=== PATIENT | male | born 1950 | race Caucasian/White ===

== ENCOUNTER 2017-04-08 16:19 | Inpatient (IN) | payer MEDICARE, OTHER ==
--- NOTE | ~2017-04-08 | CN ---
Consultation Report [facility] [address] [place]. [address] NAME: EL BLAND : 48 STATUS : ADM IN PAT#: [id number] AGE: 66 ADM/REG DATE : 04/09/17 MR#: [id number] REPORT SERV DATE: 04/14/17 DICTATED BY: DATE: REPORT STATUS : Draft TRANSCRIBED BY: MODL DATE: 04/11/17 CONSULT DATE OF CONSULTATION: 04/11/2017 REASON FOR CONSULTATION: Acute kidney injury, hypercalcemia, multiple myeloma. HISTORY OF PRESENT ILLNESS: Mr. Bland is a 66-year-old, white male, who has a history of chronic back pain. However, unfortunately, fell and then developed severe back pain over and above his usual and was found to have compression fractures in the rib and vertebral spine, hypercalcemia in the emergency department and very concerning for multiple myeloma, therefore he was admitted. On presentation for the hypercalcemia, he was given Aredia and IV fluids. Oncology saw him and he had a bone marrow biopsy and findings were consistent for the multiple myeloma, and we have been asked to see the patient for possible hyperviscosity. His creatinine has also risen from 2.1 to 2.67. Calcium remains elevated at 13 and his total protein is elevated at 11.9. He has became altered and to be transferred to the [facility] and most likely will require intubation later and transfer to the intensive care unit. PAST MEDICAL HISTORY: No history of kidney disease. Positive for hypertension, chronic back pain, reflux, depression, and BPH. He has had back and neck fusion, appendectomy, and tonsillectomy and surgery to his left shoulder and left hip. FAMILY MEDICAL HISTORY: Negative for any kidney disease. SOCIAL HISTORY: He is . No tobacco, alcohol, or illicit drug use. ALLERGIES: NO KNOWN DRUG ALLERGIES. MEDICATIONS: At home simvastatin, hydrocodone, gabapentin, HCTZ, Voltaren, and Flomax. REVIEW OF SYSTEMS: Unable to obtain given the patient's altered mental status. PHYSICAL EXAMINATION: VITAL SIGNS: Temperature 98.3, blood pressure 179/84, pulse 90, respiratory rate 28, O2 saturation is 99% on 5 L. GENERAL: This is an ill-appearing white male. He opens his eyes but did not respond verbally. He is quite tachypneic. He has BiPAP on. LUNGS: Respirations are labored. His breath sounds, he has crackles and rhonchi noted throughout. HEART: His heart rate is regular. I did not hear any murmur, rub, or gallop, but he has significant rhonchi. ABDOMEN: Soft and nontender and did not examine the back as he is on BiPAP. EXTREMITIES: No significant edema. Love catheter to bedside drainage with pale yellow Consultation Report [place] [id number] [facility] [address] [address] NAME: EL BLAND : 48 STATUS : ADM IN PAT#: [id number] AGE: 66 ADM/REG DATE : 04/09/17 MR#: [id number] REPORT SERV DATE: 04/14/17 DICTATED BY: DATE: REPORT STATUS : Draft TRANSCRIBED BY: LUIS DATE: 04/11/17 urine. NEUROLOGIC: Could not be performed. I did not see any unusual rashes or skin lesions. PERTINENT LABS AND X-RAYS: He had an ABG earlier with pH 7.5, pCO2 of 28, pO2 of 61, bicarb of 23, sodium 141, potassium 3.5, chloride 107, CO2 of 26, BUN of 30, creatinine of 2.6, calcium of 13.1, phosphorus 1.4, magnesium of 1.2. WBC 7.7, H and H 8 and 24, platelets 105,000. IMPRESSION: 1. Acute kidney injury. 2. Multiple myeloma new diagnosis. 3. Compression fractures. 4. Hypercalcemia. 5. Hypomagnesemia. 6. Hypophosphatemia. 7. Hypertension. 8. Chronic back pain. PLAN: Acute kidney injury in the setting of multiple myeloma, increased calcium and total protein of over 11. 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 The patient is already developing pulmonary edema, so volume cannot be continued as it is. We will plan to get a Vas-Cath placed, and vascular surgeon has already been called, and plan for plasmapheresis plus or minus dialysis. I have discussed plan with and daughters and granddaughters who are at bedside and they are agreeable with plan of care. Further orders and recommendations pending clinical course. NEERAJ/LUIS ILSA Zambrano / [id number] CC: Supa Navarro DO
--- NOTE | ~2017-04-08 | OP ---
Record Of Operation [facility] [address] [place]. [address] NAME: EL PETERS : 46 STATUS : ADM IN [facility]#: [id number] AGE: 66 ADM/REG DATE : 04/09/17 MR#: [id number] REPORT SERV DATE: 04/11/17 DICTATED BY: PER FERNANDEZ DATE: 04/11/17 REPORT STATUS : Draft TRANSCRIBED BY: MODL DATE: 04/11/17 DATE OF PROCEDURE: 04/11/2017 PREOPERATIVE DIAGNOSIS: Acute renal failure. POSTOPERATIVE DIAGNOSIS: Acute renal failure. PROCEDURE: Right IJ Vas-Cath. SURGEON: Per Fernandez M.D. ANESTHESIA: Propofol. COMPLICATIONS: None. BLOOD LOSS: Minimal. HISTORY: The patient is a 11-ukdn-udae in need of urgent dialysis. The plan is for right IJ Vas-Cath. DESCRIPTION OF PROCEDURE: The patient was seen in the IMCU and the right neck prepped and draped in a sterile fashion. Ultrasound confirmed a patent jugular vein. It was accessed under ultrasound guidance with an 18-gauge needle. Wire passed easily. The needle was removed. The access site was dilated serially and then the 15 cm 14.5-[place] Vas-Cath was passed over the wire easily. Both ports flushed easily. The Vas-Cath was secured to the skin with 2-0 silk suture. Sterile dressing applied. The patient tolerated the procedure well. Chest x-ray is pending. ANASTASIA/LUIS Per Fernandez M.D. / [id number] CC: DO Panda Chavez M.D.
--- NOTE | ~2017-04-08 | EEG ---
Electroencephalogram [facility] [address] [place]. [address] NAME: EL PETERS : 48 STATUS : ADM IN PAT#: [id number] AGE: 66 ADM/REG DATE : 04/09/17 MR#: [id number] REPORT SERV DATE: 04/14/17 DICTATED BY: DATE: REPORT STATUS : Draft TRANSCRIBED BY: MODL DATE: 04/14/17 CLINICAL INDICATIONS: Encephalopathy. DISCUSSION: This EEG was performed using 10/20 electrode placement system. During the EEG study, symmetric background activity was noted, predominant occipital rhythm of roughly 4 hertz. The patient was noted to have generalized slowing during the EEG study, with intermittent low-amplitude flat brain activity concerned for possible burst suppression type of patterns. Photic stimulation was performed. No clear driving response was seen. Episodic frontal beta rhythm was noted during the EEG evaluation. Hyperventilation was not performed secondary to the patient's intubation status. No electrographic seizure was otherwise visualized during the EEG evaluation. No clear focal abnormality was noted. INTERPRETATION: This EEG study obtained entirely during comatose state may be considered abnormal secondary to presence of generalized slowing as well as the presence of intermittent low amplitude flat background concern for possible burst suppression type of patterns, either secondary to sedation versus underlying metabolic encephalopathy or cerebral injury. No electrographic seizure was otherwise noted during today's EEG evaluation. Prior to EEG evaluation, the patient was on propofol sedation as well as Precedex was turned off prior to EEG study. Clinical correlation is otherwise recommended. [facility]/MODL Oliver García MD / [id number] CC: Supa Navarro DO
--- NOTE | ~2017-04-08 | OP ---
Record Of Operation [facility] [address] [place]. [address] NAME: EL PETERS : 48 STATUS : ADM IN PAT#: [id number] AGE: 66 ADM/REG DATE : 04/09/17 MR#: [id number] REPORT SERV DATE: 04/22/17 DICTATED BY: JANICE FERNANDEZ DATE: 04/22/17 REPORT STATUS : Draft TRANSCRIBED BY: MODL DATE: 04/22/17 DATE OF PROCEDURE: 04/22/2017 PREOPERATIVE DIAGNOSIS: End-stage renal disease. POSTOPERATIVE DIAGNOSIS: End-stage renal disease. PROCEDURE: Right IJ PermCath. ANESTHESIA: Local with sedation. COMPLICATIONS: None. BLOOD LOSS: Minimal. HISTORY: The patient is a 66-year-old male in need of dialysis access. It was thought he would benefit from a right IJ PermCath. This was discussed with the patient at length. He expressed understanding and desired to proceed. DESCRIPTION OF PROCEDURE: The patient was taken to the operating room and placed in the supine position. He was given IV sedation without complication. His neck and chest were prepped and draped in a sterile fashion. Ultrasound was used to identify the internal jugular vein on the right. Patency was confirmed with compression. A copy of this image was placed on the chart. 1% lidocaine was infiltrated in the skin and subcutaneous tissues overlying the internal jugular vein and onto the chest wall. Under ultrasound guidance, an 18-gauge needle was placed into the internal jugular vein. Wire was passed into the SVC and IVC which was confirmed with fluoroscopy. The needle was removed. A site for PermCath exit was chosen on the chest wall and an 11 blade was used to create an exit site. The access site was enlarged with the 11 blade as well. The 24 curved PermCath was tunneled from the exit site to the access site. Under fluoroscopic guidance, the peel-away sheath and dilator were passed over the wire into the SVC. The wire and dilator were removed. The catheter was placed through the peel-away sheath and the sheath peeled away without difficulty. The catheter was without kinking. The tip was in the right atrium. Both ports aspirated and flushed without difficulty. They were locked with full strength heparin. The access site and exit site were closed with 4-0 Monocryl suture. The PermCath was secured to the chest wall with Ethilon suture. Sterile dressing was applied. The patient tolerated the procedure well. He will be taken to the recovery room, when he is able to, for continued care. ANASTASIA/LUIS Janice Fernandez M.D. Record Of Operation [address] [address] NAME: EL PETERS : 48 STATUS : ADM IN [facility]#: [id number] AGE: 66 ADM/REG DATE : 04/09/17 MR#: [id number] REPORT SERV DATE: 04/22/17 DICTATED BY: JANICE FERNANDEZ DATE: 04/22/17 REPORT STATUS : Draft TRANSCRIBED BY: LUIS DATE: 04/22/17 / [id number] CC: MD Panda Staley M.D.
--- NOTE | ~2017-04-08 | CN ---
Consultation Report [facility] [address] [place]. [address] NAME: EL PETERS : 48 STATUS : ADM IN PAT#: [id number] AGE: 66 ADM/REG DATE : 04/09/17 MR#: [id number] REPORT SERV DATE: 04/11/17 DICTATED BY: DATE: REPORT STATUS : Draft TRANSCRIBED BY: MODL DATE: 04/11/17 NEUROLOGY CONSULTATION DATE OF CONSULTATION: 04/11/2017 REASON FOR CONSULT: Decreased mental arousal as well as confusion. HISTORY OF PRESENT ILLNESS: This is a 66-year-old male presented to [facility] on 04/09/2017 after a fall. The patient was noted to have back pain as well as difficulty breathing. The patient in emergency room was noted to have a rib fracture as well as a thoracic vertebral compression fracture. The patient was subsequently also noted to have multiple lytic initiated and myeloma was subsequently diagnosed. The patient was placed on therapy and develop possible viscosity syndrome. The patient noted to have a constellation of hypertension as well as acute renal failure with hypercalcemia. The patient in addition was also noted to have worsening respiratory status, was placed on BiPAP despite resuscitation as well as vitamin B12 supplementation for vitamin B12 deficiency. Unfortunately, the patient was noted to have worsening mental status. In addition, the patient's chest x-ray on 04/11/2017 also was noted to have development of volume overload. Prior to the hospitalization, no reports of recent illness, fever, chills, nausea, vomiting, was otherwise reported. The patient baseline was not noted to have any pre-existing kidney disease. The patient does have a history of hypertension, gastroesophageal reflux disease, peptic ulcer disease. The patient has had history of previous GI bleed required transfusion as well as a prior history of depression and chronic back pain. SOCIAL HISTORY: Denies tobacco, alcohol, or recreational drug usage per medical record. REVIEW OF SYSTEMS: The patient's review of system being unable to be obtained secondary to the patient's current mental status. FAMILY HISTORY: The patient's family history is also currently difficult to obtain secondary to the patient's mental status. MEDICATIONS: The patient's current medications consist of DuoNeb, Flomax, folic acid, , potassium, Decadron, lactulose, Lopressor, Neurontin, Zocor, Zosyn. The patient was previously given one dose of vitamin B12 secondary to vitamin B12 deficiency. PHYSICAL EXAMINATION: VITAL SIGNS: At the time of evaluation, the patient was noted to have overnight vital signs with T-max of 99.8, heart rate of 90 to 111, respirations of 16 to 28, and blood pressure of 148 to 200 over 72 to 87. GENERAL: The patient is well developed, well nourished, was noted to have mild distress secondary to respiratory issues. Consultation Report [place] [id number] [place]. [address] NAME: EL PETERS : 48 STATUS : ADM IN PAT#: [id number] AGE: 66 ADM/REG DATE : 04/09/17 MR#: [id number] REPORT SERV DATE: 04/11/17 DICTATED BY: DATE: REPORT STATUS : Draft TRANSCRIBED BY: LUIS DATE: 04/11/17 CARDIOVASCULAR: Tachycardic. No carotid bruits were otherwise auscultated. PULMONARY: Decreased breath sound was noted in bilateral lung hilario. NEUROLOGIC: The patient was noted to have neurological examination. The patient was noted to be opening his eyes with spontaneous movement of all extremities, although decreased movement in the left upper extremity was noted at the time of evaluation. However, the patient is not following commands and not answering questions making any meaningful verbalization horizontal eye movement was otherwise noted at the time of evaluation. The patient does have pupil reactive to light bilaterally. The patient noted to have blink to threat response. Facial expression appeared to be symmetrical. The patient noted to have grimace to noxious stimulation. 1+ reflexes throughout. Upgoing toe on bilateral plantar reflexes. Gait and cerebellar examination was unable to be obtained secondary to the patient's current mental status. LABORATORY STUDIES: Demonstrated white blood cell count of 7.7, hemoglobin of 8.3, hematocrit of 24.4, and platelet count of 105. Chemistry panel: Sodium 141, potassium 3.5, chloride 107, bicarb 26, BUN of 30, creatinine of 2.67, glucose of 157. Calcium of 13.1, magnesium of 1.2. The patient was noted to have serum ammonia of 42, folate of 4.2, and vitamin B12 of 149. Serum ABG demonstrated pH of 7.49, pCO2 of 32, PO2 of 91, bicarb of 24, O2 saturation of 97.2. CT scan of the brain was reviewed. No clear acute abnormality was seen. IMPRESSION: Encephalopathy concern for hyperviscosity syndrome. The patient was noted to be hyperventilating. The patient noted to have respiratory distress on BiPAP. Also noted with a hyperammonemia as well as multiple vitamin deficiency. We will obtain Critical Care Consultation for possible intubation. Meanwhile, we will recommend proceeding with the hemodialysis as well as plasmapheresis. We will supplement the patient with vitamin as well as the thiamine and p.o. folate once the patient was intubated. RECOMMENDATION: 1. Intubation. 2. Vitamin B12 of 1000 mcg IM daily. 3. Thiamine 100 mg IV daily. 4. Plasmapheresis and hemodialysis. [facility]/MODL Oliver García MD / [id number] CC: Supa Navarro DO
--- NOTE | ~2017-04-08 | HP ---
History And Physical [place] [id number] [facility] [place]. [address] NAME: EL BLAND : 48 STATUS : ADM IN PAT#: [id number] AGE: 66 ADM/REG DATE : 04/09/17 MR#: [id number] REPORT SERV DATE: 04/09/17 DICTATED BY: OBINNA KWONG DATE: 04/09/17 REPORT STATUS : Draft TRANSCRIBED BY: MODL DATE: 04/09/17 DATE OF ADMISSION: 04/08/2017 CHIEF COMPLAINT: Fall at home and severe back pain and bilateral chest pain. HISTORY OF PRESENT ILLNESS: This is a 66-year-old male with a history of hypertension, gastroesophageal reflux disease, who presents to the emergency room at [facility] with the above-mentioned complaint. History is obtained from the patient, his , who is at bedside, and reviewing data available on the [employer] system. Mrs. Bland, the patient's , reports that he has been having severe back pain which has been ongoing since January of 2017. They had seen his primary care physician and also several times at [facility] in [place], where he was given medication and discharged home. Today, she was out of home, and he apparently slipped in his bathroom and fell while taking a shower. He was, however, able to get up and dress himself and go lie down. He told her after she came back and she found that he was in considerable pain and had difficulty with chest pain with any breathing. So, she finally decided to bring him to the emergency room here to be evaluated. In the emergency room, initial workup revealed vertebral compression fractures as well as rib fractures subsequent to the fall but also showed severe hypercalcemia with osteolytic skeletal lesions concerning for metastatic disease and multiple myeloma. Hospitalist Service is asked to admit him for further evaluation and treatment. At the time of my evaluation, he denied any chest pain like having a heart attack. He denied any palpitations or orthopnea. He denied any cough, hemoptysis, night sweats, or weight loss. He has not had any loss of consciousness, although he did have a fall today. No history of recent fevers, chills, nausea, vomiting, diarrhea, hematemesis, hematochezia, or hematuria. No other history of recent travel or exposures other than those mentioned above. PAST MEDICAL HISTORY: Significant for history of hypertension, gastroesophageal reflux disease, peptic ulcer disease, depression, and chronic back pain. SOCIAL HISTORY: He does not smoke, drink, or use recreational drugs. FAMILY HISTORY: Noncontributory. MEDICATIONS: At home were reviewed by me in the chart today and reordered by me. REVIEW OF SYSTEMS: As in history of present illness. All other systems were reviewed in detail and quite unremarkable. PHYSICAL EXAMINATION: History And Physical [address] [address] NAME: EL BLAND : 48 STATUS : ADM IN PAT#: [id number] AGE: 66 ADM/REG DATE : 04/09/17 MR#: [id number] REPORT SERV DATE: 04/09/17 DICTATED BY: OBINNA KWONG DATE: 04/09/17 REPORT STATUS : Draft TRANSCRIBED BY: LUIS DATE: 04/09/17 GENERAL: This is a pleasant 66-year-old, not in any acute distress. HEENT: His head is atraumatic, normocephalic. He is alert, awake, oriented to time, place, and person. His pupils are equal, reacting to light and accommodating. External ocular muscles are intact. Membranes are moist and pink. Sclerae are nonicteric. NECK: Supple with no jugular venous distention, lymphadenopathy, or thyromegaly. LUNGS: Clear to auscultation with no wheezes, rubs, or crackles. HEART: Heart sounds are regular with no murmurs, rubs, or gallops. ABDOMEN: Soft, nontender. Bowel sounds are present. EXTREMITIES: Showed no cyanosis, clubbing, or edema. NEUROLOGIC: Grossly intact. No focal sensory or motor deficits. Higher functions appeared intact. Gait was not examined. VITAL SIGNS: His vital signs today showed a temperature of 97.4, pulse 68, respirations 16 a minute, blood pressure upon arrival is 230/79, oxygen saturations are 98% breathing 2 L of oxygen via nasal cannula. LABORATORY DATA: Reviewed on the [employer] system showed a sodium of 139, potassium 3.8, chloride 104, CO2 of 32, BUN was 19 with a creatinine of 2.14. We do not have any prior values. His blood glucose was 101 and calcium was 14.9 with ionized calcium of 7.8. His albumin was 2.6 today. Alkaline phosphatase was 85. ALT 56, AST 92, and lipase was 91. His lactate was 1.1. CBC showed a white blood cell count of 5300, hemoglobin was 10, hematocrit 30, and platelet count was 136. His prothrombin time was 17.7 with an INR of 1.5. Films of the chest x-ray, CT of the abdomen, and other skeletal films done today were reviewed by me on the PACS today and interpreted by me. Official radiology report was also reviewed on the CT of the abdomen. According to radiology in the CT of the abdomen there is compression fractures at T10, T12, and L1. There is also diffuse osteolytic metastatic appearing lesions seen concerning for multiple myeloma. Please see report for details. IMPRESSION: 1. Fall at home. 2. Vertebral compression fractures and rib fractures. 3. Hypercalcemia with osteolytic skeletal lesions concerning for multiple myeloma. 4. Acute pain after the fall and fractures. 5. Uncontrolled hypertension. 6. Gastroesophageal reflux disease. 7. Peptic ulcer disease. 8. Depression. 9. Hypomagnesemia. PLAN: We will admit Mr. Bland to the Hospitalist Service to the oncology floor. We will establish pain control with intravenous Dilaudid on an as-needed basis. He has no respiratory compromise and other than the chest pain due to rib fractures, he appears to be stable. We will start him on IV fluids with normal saline at 200 mL an hour, follow output, and go ahead and repeat his chemistry including calcium in the morning. We will also consult Oncology Service to evaluate him for multiple myeloma in the morning. He does have mild confusion but not very severe at this point due to his hypercalcemia. Meanwhile, we will go ahead and replace his magnesium as well. I have discussed the above plans with the patient and his . Questions were answered, and they are agreeable to the above History And Physical [address] [address] NAME: EL BLAND : 48 STATUS : ADM IN [facility]#: [id number] AGE: 66 ADM/REG DATE : 04/09/17 MR#: [id number] REPORT SERV DATE: 04/09/17 DICTATED BY: OBINNA KWONG DATE: 04/09/17 REPORT STATUS : Draft TRANSCRIBED BY: LUIS DATE: 04/09/17 recommendations. Hospitalist Service will be following him during his stay here. MR/MODL Obinna Kwong M.D. / [id number] CC: DO Panda Chavez M.D.
--- NOTE | ~2017-04-08 | DS ---
Discharge Summary [address] [facility] [place] [address] NAME: EL PETERS : 46 STATUS : DIS IN PAT#: [id number] AGE: 66 ADM/REG DATE : 04/09/17 MR#: [id number] REPORT SERV DATE: 04/30/17 DICTATED BY: CHRIS FORD DATE: 04/29/17 REPORT STATUS : Draft TRANSCRIBED BY: MODL DATE: 04/29/17 ADMISSION DATE: 04/09/2017 DISCHARGE DATE: 04/29/2017 DISCHARGE DIAGNOSES: 1. Multiple myeloma with hyperviscosity syndrome, status post Velcade and dexamethasone. 2. Acute hypoxic respiratory failure, requiring intubation and extubation, now resolved. 3. Acute kidney injury on hemodialysis secondary to septic shock and multiple myeloma. 4. Dysphagia, improving. 5. Atrial fibrillation with rapid ventricular response, now controlled. 6. Encephalopathy secondary to hyperviscosity syndrome. IMAGIN. CT brain, 04/10/2017, impression: No acute infarct or hemorrhage. 2. Kyphoplasty, 04/10/2017, impression: Technically successful biopsy and kyphoplasty of the T8 vertebra. 3. KUB, 04/11/2017, impression: NG-OG tube in place. Nonobstructive bowel gas pattern. 4. Chest x-ray, 04/11/2017, impression: Developing volume overload or congestive heart failure, compared to 04/08/2017. 5. Chest x-ray, 04/12/2017, impression: Bilateral pulmonary infiltrates with small pleural effusion unchanged. 6. Chest x-ray, 04/13/2017, increased volume overload, congestive heart failure pattern. 7. Chest x-ray, 04/14/2017, impression: Placement of right upper extremity PICC line with tip over the SVC. Continued dense retrocardiac opacity coming out on the left base consistent with pneumonia or atelectasis. 8. Chest x-ray, 04/15/2017, impression: Tubes and lines positioned as reported above. Left basilar atelectasis/infiltrate with possible pleural fluid. 9. Chest x-ray, 04/16/2017, impression: Status post extubation. Left greater than right bibasilar atelectasis and small effusion. 10.Chest x-ray, 04/17/2017, left basilar atelectasis and pleural fluid. 11.Chest x-ray, 04/18/2017, impression: Stable support lines and tubes. 12.Chest x-ray, 04/19/2017, impression: Bibasilar atelectasis and small left effusion, mildly improved from previous study. 13.CT of lumbar spine, 04/20/2017, impression: Stable compression fractures of the T12 superior endplate with minimal loss of height at this level, anterior wedge compression deformity of the L1 superior endplate was approximately 50% loss of height at L1. Stable posterior fusion hardware extending from L2 through S1 and disk spaces from L2 through L3 through L4 and 5, interbody fusion device at L5-S1. There is also anterior fusion hardware at L5-S1. There has been previous posterior decompression at L2 and L4. Mild bilateral neural foraminal narrowing at L1-2 and described. No high-grade spinal canal narrowing appreciated within the lumbar spine. 14.Chest x-ray, 04/21/2017, impression: Interval removal of the right internal jugular catheter. Otherwise, support lines are stable. No pneumothorax thorax. 15.Chest x-ray, 04/23/2017, impression: New tunneled right-sided hemodialysis catheter. No postprocedure pneumothorax seen. 16.Echocardiogram, 04/16/2017, technically difficult study. Normal left ventricular Discharge Summary [address] [address] NAME: EL PETERS : 48 STATUS : DIS IN PAT#: [id number] AGE: 66 ADM/REG DATE : 04/09/17 MR#: [id number] REPORT SERV DATE: 04/30/17 DICTATED BY: CHRIS FORD DATE: 04/29/17 REPORT STATUS : Draft TRANSCRIBED BY: MOD DATE: 04/29/17 systolic function with estimated ejection fraction of 55% to 60%, normal right ventricular chamber size and systolic function. Cannot rule out significant valvular disease due to poor acoustic windows. 17.Right IJ Vas-Cath placed on 04/11/[address] Per Fernandez. COURSE IN THE HOSPITAL STAY: Please refer to history and physical dictated upon admission as well as interim notes and consultation notes. This patient has newly diagnosed multiple myeloma with hyperviscosity syndrome. The patient was admitted on 04/09/2017, is now being discharged on 04/29/2017 per the patient's request, the patient is being discharged to [facility]. The patient has declined further treatment. He has requested no further dialysis or chemotherapy. He has discussed this in great length with Dr. Deny Obrien. The patient has met with [facility] and has decided that this would be the best direction of care at this time. DISCHARGE MEDICATIONS: Per [facility]. This discharge took less than 30 minutes. DICTATED BY: Chris Ford NP [facility]/MODL Chris Ford NP / [id number] CC: Aaliyah Chan M.D.
--- NOTE | ~2017-04-08 | IDS ---
Interim Discharge Summary [facility] [address] [place]. [address] NAME: EL PETERS : 48 STATUS : ADM IN PAT#: [id number] AGE: 66 ADM/REG DATE : 04/09/17 MR#: [id number] REPORT SERV DATE: 04/20/17 DICTATED BY: NOEMÍ JULES IV DATE: 04/20/17 REPORT STATUS : Draft TRANSCRIBED BY: LUIS DATE: 04/20/17 ADMISSION DATE: 04/09/2017 DISCHARGE DATE: Date of the transfer to the intensive care unit is 04/11/2017. Date of transfer to the floor is 04/20/2017. ADMITTING DIAGNOSES: 1. Acute hypoxemic respiratory failure, requiring intubation, extubated on 04/15/2017. 2. Multiple myeloma with hyperviscosity syndrome, improved. 3. Septic shock with no clear organism localized, who remains on antibiotic therapy. 4. Marked encephalopathy, felt to be secondary to the hyperviscosity, resolved. 5. Atrial fibrillation with rapid ventricular response, who remains on oral amiodarone. 6. Acute kidney injury status post dialysis with Nephrology following to see if a continued dialysis is needed. 7. Dysphagia. Currently, receiving tube feeds with formal swallow evaluation pending on Friday. 8. B12 deficiency for which he has received the low dose of B12 IM and will begin receiving weekly doses. 9. Hypertension, currently off his blood pressure medications. 10.Reflux disease. CONSULTANTS: 1. Neurology, who continued to follow the patient. 2. Nephrology, who continued to follow the patient. 3. [facility], who continued to follow the patient. PROCEDURES: 1. The patient underwent Vas-Cath placement on the with plasmapheresis from the through the with hemodialysis through the , now with a Vas-Cath removed. 2. Echocardiogram on the 04/16/2017 demonstrating left ventricular ejection fraction of 55% to 60% with no clear valvular disease though suboptimal study. 3. PICC line placement on the 04/13/2017. 4. EEG on the 04/14/2017 demonstrating diffuse slowing with no seizure activity. CURRENT MEDICATIONS: The patient is on Cordarone 200 mg twice a day, DuoNeb q.4 h. while awake and q.4 h. as needed, Flagyl 500 mg q.8 h., Flomax 0.4 mg daily, Florastor one twice a day, folic acid 1 mg daily, Imdur 30 mg daily, thiamine 100 mg daily, Maxipime 1 g daily, vancomycin dose per pharmacy, Protonix 40 mg daily, and level 2 insulin sliding scale, Neurontin will be decreased to 300 mg daily, and Zocor 20 mg daily. HOSPITAL COURSE: The patient was admitted to the Critical Care Service on the when he required intubation for hypoxemic respiratory failure. He remained ventilated until the , at which time, he was successfully extubated when his encephalopathy markedly improved. He has required occasional supplemental oxygen with persistent x-ray evidence for some left basilar atelectasis, however, now has been on room air for the last 24 hours. He continues Interim Discharge Summary [address] [place]. [address] NAME: EL PETERS : 48 STATUS : ADM IN PAT#: [id number] AGE: 66 ADM/REG DATE : 04/09/17 MR#: [id number] REPORT SERV DATE: 04/20/17 DICTATED BY: NOEMÍ JULES IV DATE: 04/20/17 REPORT STATUS : Draft TRANSCRIBED BY: LUIS DATE: 04/20/17 to receive DuoNeb to assist with mucus clearance. He was followed by [facility] and did receive dexamethasone and Velcade for his myeloma, which will be dosed per Oncology. His encephalopathy was quite profound though dramatically improved on the , allowing extubation. He has done quite well. However, when he spiked a temperature on the to 103, had 24 hours of worsening encephalopathy. Currently, he is awake, alert, and oriented. He had atrial fibrillation with rapid ventricular response on the for which he was given IV load of amiodarone and is continuing on oral amiodarone at this time. He received hemodialysis from the through the . At which time, his Vas-Cath was pulled and cultured. Nephrology continues to follow to see if continued dialysis will be required with a new line. There was concern about dysphagia for which a swallow study was ordered, however, never performed. He has a nasogastric tube with tube feeds going at this time with a formal swallow evaluation request for tomorrow. He underwent B12 replacement therapy as noted. The patient is currently clinically doing quite well with continued use of antibiotic therapy. He was empirically broadly covered though Zosyn was discontinued when only cultures for Staph intermedius from his tracheal aspirate were obtained. Soon after, he spiked a temp to 103 with concern about possible aspiration, for which cefepime and Flagyl were provided. He defervesced and is clinically done markedly well; however, all blood cultures have been negative. He did have a significant rise in his procalcitonin level to 7.9, so would continue antibiotic therapy empirically for now. It was felt that he was stable for transfer to the floor. We will ask the Hospitalist Service to resume primary responsibilities. JEFF/LUIS Noemí Jules IV, M.D. / [id number] CC: Aaliyah Aranda IV, M.D.
--- NOTE | ~2017-04-08 | IDS ---
Interim Discharge Summary [facility] [address] [place]. [address] NAME: EL PETERS : 46 STATUS : ADM IN PAT#: [id number] AGE: 66 ADM/REG DATE : 04/09/17 MR#: [id number] REPORT SERV DATE: 04/28/17 DICTATED BY: CARROLL TORREZ DATE: 04/28/17 REPORT STATUS : Draft TRANSCRIBED BY: MODL DATE: 04/28/17 ADMISSION DATE: 04/09/2017 DISCHARGE DATE: REASON FOR ADMISSION: Vertebral compression fracture, hypercalcemia of the osteolytic skeletal lesion concerning for multiple myeloma in a fall at home. HOSPITAL COURSE: Hospital course from admission to 04/20/2017: Please refer to Dr. Darnell Jules's interim summary. In brief, the patient was initially admitted to the Hospitalist Service, but quickly went into hypoxic respiratory failure requiring intubation and then successfully extubated on 04/15/2017. He was in the ICU during that time. He was newly diagnosed with multiple myeloma with hyperviscosity syndrome. He also developed septic shock, both of which led to acute kidney injury, leading towards dialysis. Nephrology had been consulted to initiate dialysis. He is currently getting dialysis on Friday, , Friday. He did have some marked encephalopathy, which was likely secondary to hyperviscosity, which was resolving. He also went into AFib with RVR that was controlled on amiodarone. After he was stabilized for lengthy stay in the ICU, he was transferred to the Hospitalist Service on 04/21/2017. Hospital course from 04/21/2017 to present: I assumed care of this patient when he went to the floor at which point in time, Nephrology continued to follow the patient for his acute kidney injury. He did spike some fevers early on in the week and he was placed back on IV antibiotics. Cultures were negative. There was initial concern that his Vas-Cath was infected; it was pulled and it was sent for culture, which was no growth to date. After he had been on some antibiotics, Dr. Per Fernandez placed a right IJ PermCath for hemodialysis access. The patient's dysphagia had continued to improve throughout the hospitalization. Speech Therapy had evaluated him and recommended a soft mechanical diet. He had been weaned off oxygen and his encephalopathy had been on the floor, was likely secondary to [place], which had been discontinued and we are currently having decent pain control with tramadol. His thrombocytopenia has been stable. At this point in time, we have been waiting for a final disposition for him, which is going to need to be a rehab facility that will include hemodialysis. It is unclear at this point if the patient is still in the acute phase or is going to be deemed end-stage renal disease. At any rate, Dr. Obrien with Oncology have been following the patient. He had received his doses of Velcade. Last dose was given on 04/26/2017 with dexamethasone. He is due again for another dose on 05/06/2017. Currently, the patient has a preference for [facility]. We will contact the [facility] liaison to see if he will be accepted to [facility] for rehab and HD. If not, then the patient's second choice will be [facility] and then, he will need to get transportation to [facility] on 05/06/2017 for his next cycle of Velcade. DISPOSITION: Once we have established [facility] versus [facility] for rehab, he can be discharged to this facility hopefully by Friday or . His next round of dialysis will be tomorrow on Friday. INTERIM DIAGNOSES: Acute hypoxic respiratory failure, requiring intubation and extubation on 04/15/2017, now resolved. Multiple myeloma with hyperviscosity syndrome, stable status post Interim Discharge Summary [address] [address] NAME: EL PETERS : 48 STATUS : ADM IN [facility]#: [id number] AGE: 66 ADM/REG DATE : 04/09/17 MR#: [id number] REPORT SERV DATE: 04/28/17 DICTATED BY: CARROLL TORREZ DATE: 04/28/17 REPORT STATUS : Draft TRANSCRIBED BY: MODL DATE: 04/28/17 Velcade and dexamethasone, followed by Dr. Obrien. Septic shock with no clear organism localized, had completed several rounds of antibiotic therapy. Marked encephalopathy secondary to hyperviscosity syndrome during the ICU, then likely secondary to [place], now resolved. Atrial fibrillation with rapid ventricular response, now rate controlled, in normal sinus rhythm, currently on amiodarone and metoprolol. Acute kidney injury, on hemodialysis Friday, , Friday, secondary to septic shock and multiple myeloma. Dysphagia, improving, able to tolerate a soft mechanical diet per speech therapist. B12 deficiency, hypertension, reflux, thrombocytopenia, chronic back pain. CONSULTANTS: Include Neurology, Nephrology, [facility]. PROCEDURES: Include plasmapheresis, echocardiogram, PICC line placement, EEG, removal of Vas Cath with replacement of right IJ PermCath by Dr. Fernandez. Dr. Ashby will assume care of this patient on 04/29/2017 and can be discharged to [facility] or [facility] once he has been accepted. JASMIN/LUIS Carroll Torrez MD / [id number] CC: MD Panda Staley M.D.
--- NOTE | ~2017-04-08 | OP ---
Record Of Operation [facility] [address] [place] [address] NAME: EL BLAND : 48 STATUS : ADM IN PAT#: [id number] AGE: 66 ADM/REG DATE : 04/09/17 MR#: [id number] REPORT SERV DATE: 04/11/17 DICTATED BY: DEREK EDWARDS DATE: 04/11/17 REPORT STATUS : Draft TRANSCRIBED BY: MODSathya DATE: 04/11/17 DATE OF PROCEDURE: 04/11/2017 PULMONARY CRITICAL CARE MEDICINE PROCEDURE NOTE PROCEDURE: Endotracheal intubation. PROCEDURE IN DETAILS: After discussing case with Dr. aCrcamo, the patient's family, Mr. Bland's ongoing respiratory distress and hypoxemic respiratory failure, appeared to be worsening despite aggressive intervention with BiPAP with high FiO2 setting, risks and benefits of mechanical ventilation were discussed with the patient's family who verbalized that he would only want short-term mechanical ventilation and would not be interested in any sort of long-term ventilatory support or tracheostomy. They ultimately agreed to proceed and Mr. Bland was positioned in the usual fashion, premedicated with 20 mg of etomidate and 50 mg of rocuronium and a #4 GlideScope was used to clearly visualize his vocal cords which were coated in thick brown secretions, suctioned with a Yankauer with some difficulty and subsequently a #8.0 endotracheal tube was passed through the vocal cords on the first attempt without any resistance (the tube had been lubricated and advanced). Following insertion of endotracheal tube, there were bilateral breath sounds, positive color change on CO2 detector, absent breath sounds over the fundus of the stomach with bagging, and a followup chest x-ray showed the tube approximately 2 to 3 cm above the level of anthony. He was placed on mechanical ventilation on lung protective ventilation strategy and was shortly thereafter seen by Vascular Surgery for insertion of right IJ Vas-Cath and moved to the hemodialysis unit for dialysis and plasmapheresis in anticipation of ultimately moving to the CCU later in the evening. NAFISA/LUIS Derek Edwards MD / [id number] CC: Supa Navarro DO
--- NOTE | ~2017-04-08 | CN ---
Consultation Report [facility] [address] [place]. [address] NAME: EL BLAND : 48 STATUS : ADM IN PAT#: [id number] AGE: 66 ADM/REG DATE : 04/09/17 MR#: [id number] REPORT SERV DATE: 04/09/17 DICTATED BY: DENY JONES DATE: 04/09/17 REPORT STATUS : Draft TRANSCRIBED BY: MODL DATE: 04/09/17 CONSULTATION NOTE DATE OF CONSULTATION: 04/09/2017 REASON FOR CONSULTATION: Suspected myeloma. HISTORY OF PRESENT ILLNESS: Mr. Bland is a 66-year-old man who has a long history of chronic lumbar spine injury requiring surgery 6 years ago, also history of hypertension, gastroesophageal reflux, who fell in the shower and was brought to [facility], with severe mid back pain. Prior to developing this severe pain, he has had about one-month history of some increasing mid back pain, wrapping around and radiating into his mid to lower abdomen. Bowels were moving normally. Urinating without any difficulty. He had not been having any fevers or chills. He has had good urine output and no other bone pain developing. Upon presentation to the emergency room, he was found to have evidence of a T8 vertebral compression fracture approximately 80% anterior wedging, also a smaller T12 compression fracture with evidence of lytic lesion in the bone on CT scan of the abdomen and pelvis, which was done without contrast. He was found to have an elevated creatinine of 2 and an elevated calcium of 14.7, with a hemoglobin of 10.2. He was admitted to the hospital for IV pain medication with a suspected diagnosis of multiple myeloma. Since being hospitalized, he has been given pain medication, but has persistent severe mid back pain. He denies any weakness or numbness of lower extremities. He has not been able to urinate, notes some pelvic discomfort since being hospitalized, and started on hydration with normal saline for his hypercalcemia. He is having some confusion, but no lethargy. CT scan of the brain without contrast showed no acute changes. PAST MEDICAL AND SURGICAL HISTORY: Significant for lumbar disk disease, status post laminectomy 6 years ago; history of hypertension; gastroesophageal reflux; remote peptic ulcer disease; chronic pain; depression; and benign prostatic hypertrophy. MEDICATIONS: As per MAR. SOCIAL HISTORY: He lives in [place] with family, previously lived in [place] and worked in the [employer]an[employer] industry. Denies any chemical exposures, but did a tour through [place] and had Agent [place] exposure. Denies any cigarette smoking, alcohol, or drug use. FAMILY HISTORY: Negative for myeloma or other malignancies. REVIEW OF SYSTEMS: A 13-point review of systems are as per history of present illness; otherwise, negative or unremarkable. PHYSICAL EXAMINATION: VITAL SIGNS: He is currently afebrile with normal vital signs. Consultation Report [address] [place]. [address] NAME: EL BLAND : 46 STATUS : ADM IN PAT#: [id number] AGE: 66 ADM/REG DATE : 04/09/17 MR#: [id number] REPORT SERV DATE: 04/09/17 DICTATED BY: DENY JONES DATE: 04/09/17 REPORT STATUS : Draft TRANSCRIBED BY: LUIS DATE: 04/09/17 GENERAL: He has had mild distress related to back pain, lying on his right side in bed. HEENT: With NCAT and sclerae anicteric. NECK: No JVD or adenopathy. HEART: Regular rate and rhythm without murmurs. LUNGS: Clear to auscultation. ABDOMEN: Moderately obese with active bowel sounds. Soft with mild suprapubic tenderness, but no discrete mass. EXTREMITIES: Without cyanosis, clubbing, or edema. Pulses intact distally. NEUROLOGIC: Able to move all extremities. Mild lethargy. Disoriented to time. BACK: Reveals moderate percussion tenderness of the mid spine and lower spine, but no discrete mass. LABORATORY DATA: Labs and x-rays reviewed. IMPRESSION: The patient has evidence of new onset pathological fracture with T8 compression fracture 80% on x-ray, T12 compression fracture approximately 30% with severe associated pain and new onset of hypercalcemia, anemia and renal insufficiency, all consistent with multiple myeloma presentation. We will obtain serum protein electrophoresis, 24-hour urine protein electrophoresis, beta 2 microglobulin, skeletal survey. We will continue with pain medication, try to get a T8 vertebroplasty done for pain control, and a bone biopsy as well as bone marrow aspirate and biopsy. He is already on hydration for his hypercalcemia. We will plan to start pamidronate 60 mg IV over 24 hours. Monitor kidney function closely. After final diagnosis is confirmed, we will arrange for the patient to start systemic therapy for myeloma. At 66 years of age, otherwise healthy, he may be a candidate for blood cell transplantation consolidation later. Because of the severity of the elevated globulin, we will go ahead and send a serum viscosity to make sure there is no hyperviscosity syndrome, which might require plasmapheresis. REDDY/LUIS Deny Jones M.D. / [id number] CC: DO Panda Chavez M.D.
[2017-04-08 17:30] LABS: BASOPHILS 0.2 %; BASOPHILS ABSOLUTE 0.01 10/3/uL (0.0-0.16); EOSINOPHILS 2.8 %; EOSINOPHILS ABSOLUTE 0.15 10/3/uL (0.0-0.53); ER CBC TAT 0 Hrs 05 Mins; IMMATURE GRANULOCYTES 0.2 %; IMMATURE GRANULOCYTES ABSOLUTE 0.01 10/3/uL (0.0-0.11); LYMPHOCYTES 39.1 %; LYMPHOCYTES ABSOLUTE 2.07 10/3/uL (0.67-4.30); MANUAL DIFF NO %; MEAN CORPUS HGB CONC 33.3 g/dL (32.0-36.0); MEAN CORPUSCULAR HEMOGLOB 30.9 pg (26.0-34.0); MEAN CORPUSCULAR VOLUME 92.6 fL (80-100); MEAN PLATELET VOLUME 11.6 fL (9.2-13.0); MONOCYTES 9.1 %; MONOCYTES ABSOLUTE 0.48 10/3/uL (0.21-1.20); NEUTROPHILS 48.6 %; NEUTROPHILS ABSOLUTE 2.58 10/3/uL (2.02-8.40); PLATELET COUNT 136 10/3/uL (150-400); RBC DISTRIBUTION WIDTH 15.2 % (12.0-16.0); RED CELL COUNT 3.24 10/6/uL (4.7-6.1); WHITE BLOOD CELLS 5.3 10/3/uL (4.5-10.5)
[2017-04-08 17:36] LABS: INTERNATIONAL NORMAL RATI 1.5 UNITS (-); PARTIAL THROMBO TIME 32.1 SEC (22.5-37.2); PROTIME (NOT ORD) 17.7 SEC (12.0-14.5)
[2017-04-08 17:48] LABS: BUN (BLOOD UREA NITROGEN) 19 MG/DL (6-23); CALCIUM, SERUM 14.9 MG/DL (8.5-10.4); CHEST PAIN PROFILE TAT 0 Hrs 23 Mins; CHLORIDE, SERUM 104 MMOL/L (96-112); CO2 (CARBON DIOXIDE) 32 MMOL/L (24-34); CREATININE 2.14 MG/DL (0.70-1.30); GFR AFRICAN AMERICAN 36 ML/MIN (>=60); GFR NON AFRICAN AMERICAN 31 ML/MIN (>=60); GLUCOSE, SERUM 101 MG/DL (60-99); POTASSIUM, SERUM 3.8 MMOL/L (3.5-5.3); SODIUM, SERUM 139 MMOL/L (135-148); TROPONIN I 0.03 NG/ML (<0.05)
[2017-04-08 20:15] LABS: ALBUMIN 2.6 G/DL (3.5-5.0); ALKALINE PHOSPHATASE 85 U/L (45-117); DIRECT BILIRUBIN < 0.1 MG/DL (0.0-0.4); INDIRECT BILIRUBIN(NOT ORDER) 0.5 MG/DL (0.1-0.9); SGOT(AST) 92 U/L (5-40); SGPT(ALT) 56 U/L (5-65); TOTAL BILIRUBIN 0.6 MG/DL (0-1.2); TOTAL PROTEIN 11.9 G/DL (6.0-8.5)
[2017-04-08] MEDS ORDERED: ZOCOR20 PO (20:16)
[2017-04-08] MEDS ORDERED: HYDROCHLOROT25 MG PO (20:17)
[2017-04-08] MEDS ORDERED: NORCO1 TAB PO (20:17)
[2017-04-08] MEDS ORDERED: NEUR300 PO (20:17)
[2017-04-08] MEDS ORDERED: *UNABLE1 (20:18)
[2017-04-08] MEDS ORDERED: VOLT75 PO (20:18)
[2017-04-08] MEDS ORDERED: FLOMAX4 PO (20:21)
[2017-04-09 10:38] LABS: BASOPHILS 0.2 %; BASOPHILS ABSOLUTE 0.01 10/3/uL (0.0-0.16); EOSINOPHILS ABSOLUTE 0.05 10/3/uL (0.0-0.53); HEMATOCRIT 28.6 % (40.0-51.0); HEMOGLOBIN 9.4 g/dL (13.6-17.8); IMMATURE GRANULOCYTES 0.2 %; IMMATURE GRANULOCYTES ABSOLUTE 0.01 10/3/uL (0.0-0.11); LYMPHOCYTES 27.3 %; LYMPHOCYTES ABSOLUTE 1.31 10/3/uL (0.67-4.30); MEAN CORPUS HGB CONC 32.9 g/dL (32.0-36.0); MEAN CORPUSCULAR HEMOGLOB 30.7 pg (26.0-34.0); MEAN CORPUSCULAR VOLUME 93.5 fL (80-100); MEAN PLATELET VOLUME 11.9 fL (9.2-13.0); MONOCYTES 7.7 %; MONOCYTES ABSOLUTE 0.37 10/3/uL (0.21-1.20); NEUTROPHILS 63.6 %; NEUTROPHILS ABSOLUTE 3.05 10/3/uL (2.02-8.40); PLATELET COUNT 130 10/3/uL (150-400); RBC DISTRIBUTION WIDTH 14.8 % (12.0-16.0); RED CELL COUNT 3.06 10/6/uL (4.7-6.1); RETICULOCYTE COUNT 1.1 % (0.5-2.5); WHITE BLOOD CELLS 4.8 10/3/uL (4.5-10.5)
[2017-04-09 10:42] LABS: MANUAL DIFF NO %
[2017-04-09 11:02] LABS: T PROTEIN (ELECT)(NOT OR 10.9 G/DL (6.0-8.5)
[2017-04-09 18:13] LABS: ASCORBIC ACID (UR NOT ORDER) NEG (NEG); BILIRUBIN, URINE NEGATIVE (NEG); KETONE, URINE NEGATIVE (NEG); LEUKOCYTE ESTERASE(NOT OR NEG (NEG); WBC (NOT ORDERED) (RFLEX) 1 (0-5)
[2017-04-10 06:41] LABS: BASOPHILS 0.2 %; BASOPHILS ABSOLUTE 0.01 10/3/uL (0.0-0.16); EOSINOPHILS 0.2 %; EOSINOPHILS ABSOLUTE 0.01 10/3/uL (0.0-0.53); HEMATOCRIT 28.4 % (40.0-51.0); HEMOGLOBIN 9.4 g/dL (13.6-17.8); IMMATURE GRANULOCYTES 0.3 %; IMMATURE GRANULOCYTES ABSOLUTE 0.02 10/3/uL (0.0-0.11); LYMPHOCYTES 22.7 %; LYMPHOCYTES ABSOLUTE 1.49 10/3/uL (0.67-4.30); MANUAL DIFF NO %; MEAN CORPUS HGB CONC 33.1 g/dL (32.0-36.0); MEAN CORPUSCULAR HEMOGLOB 30.6 pg (26.0-34.0); MEAN CORPUSCULAR VOLUME 92.5 fL (80-100); MEAN PLATELET VOLUME 11.9 fL (9.2-13.0); MONOCYTES 9.9 %; MONOCYTES ABSOLUTE 0.65 10/3/uL (0.21-1.20); NEUTROPHILS 66.7 %; NEUTROPHILS ABSOLUTE 4.38 10/3/uL (2.02-8.40); PLATELET COUNT 119 10/3/uL (150-400); RBC DISTRIBUTION WIDTH 14.9 % (12.0-16.0); RED CELL COUNT 3.07 10/6/uL (4.7-6.1); WHITE BLOOD CELLS 6.6 10/3/uL (4.5-10.5)
[2017-04-10 07:28] LABS: BUN (BLOOD UREA NITROGEN) 19 MG/DL (6-23); CHLORIDE, SERUM 106 MMOL/L (96-112); CO2 (CARBON DIOXIDE) 28 MMOL/L (24-34); CREATININE 2.31 MG/DL (0.70-1.30); FERRITIN 285 NG/ML (26-388); GFR AFRICAN AMERICAN 32 ML/MIN (>=60); GFR NON AFRICAN AMERICAN 28 ML/MIN (>=60); GLUCOSE, SERUM 132 MG/DL (60-99); IRON BINDING CAPACITY 214 MCG/DL (250-450); IRON, SERUM 32 MCG/DL (35-150); PHOSPHORUS, SERUM 2.7 MG/DL (2.5-4.5); POTASSIUM, SERUM 3.6 MMOL/L (3.5-5.3); SODIUM, SERUM 138 MMOL/L (135-148)
[2017-04-10 07:29] LABS: CALCIUM, SERUM 14.1 MG/DL (8.5-10.4); FOLATE 4.2 NG/ML (>5.2)
[2017-04-10 11:49] LABS: ABNORMAL PEAK 1 5.64 G/DL; ABNORMAL PEAK 1 % 51.8 % (0); ALB RELATIVE % 28.6 % (60.0-89.0); ALBUMIN (ELECTRO) 3.12 GM/DL (3.2-5.5); ALPHA 1 (ELECTRO) 0.24 GM/DL (0.1-0.4); ALPHA 1 RELAT % (NOT ORD) 2.2 % (1.0-4.0); ALPHA 2 (ELECTRO) 0.73 GM/DL (0.5-1.10); ALPHA 2 RELAT % 6.7 % (4.5-26.0); BETA GLOBULIN (SPE) 0.77 GM/DL (0.60-1.30); BETA RELATIVE % 7.1 % (9.0-22.0); GAMMA GLOBULIN (SPE) 6.04 G/DL (0.70-1.60); GAMMA RELAT % 55.4 % (6.0-22.0)
[2017-04-11 07:11] LABS: BASOPHILS 0 %; EOSINOPHILS 0 %; HEMOGLOBIN 8.3 g/dL (13.6-17.8); IMMATURE GRANULOCYTES 0.3 %; IMMATURE GRANULOCYTES ABSOLUTE 0.02 10/3/uL (0.0-0.11); LYMPHOCYTES 8.6 %; LYMPHOCYTES ABSOLUTE 0.66 10/3/uL (0.67-4.30); MEAN PLATELET VOLUME 11.9 fL (9.2-13.0); MONOCYTES 4.4 %; MONOCYTES ABSOLUTE 0.34 10/3/uL (0.21-1.20); NEUTROPHILS 86.7 %; NEUTROPHILS ABSOLUTE 6.63 10/3/uL (2.02-8.40); PLATELET COUNT 105 10/3/uL (150-400); RBC DISTRIBUTION WIDTH 15.2 % (12.0-16.0); RED CELL COUNT 2.68 10/6/uL (4.7-6.1); WHITE BLOOD CELLS 7.7 10/3/uL (4.5-10.5)
[2017-04-11 07:12] LABS: HEMATOCRIT 24.4 % (40.0-51.0); MANUAL DIFF NO %
[2017-04-11 07:31] LABS: CHLORIDE, SERUM 107 MMOL/L (96-112); CO2 (CARBON DIOXIDE) 26 MMOL/L (24-34); CREATININE 2.67 MG/DL (0.70-1.30); GFR AFRICAN AMERICAN 27 ML/MIN (>=60); GFR NON AFRICAN AMERICAN 23 ML/MIN (>=60); GLUCOSE, SERUM 157 MG/DL (60-99); POTASSIUM, SERUM 3.5 MMOL/L (3.5-5.3); SODIUM, SERUM 141 MMOL/L (135-148)
[2017-04-11 07:33] LABS: BUN (BLOOD UREA NITROGEN) 30 MG/DL (6-23); CALCIUM, SERUM 13.1 MG/DL (8.5-10.4); PHOSPHORUS, SERUM 1.4 MG/DL (2.5-4.5)
[2017-04-11 08:59] LABS: BE (BASE EXCESS) 0.8 MEQ/L (0 +/- 2.5); CARBOXYHEMOGLOBIN 0.8 % (0-3); DEVICE Nasal Cannula 6L; HCO3 (ACTUAL BICARBONATE) 23.1 MEQ/L (23-27); HEMOBLOGIN CONTENT 8.8 G/DL (14-18); INSTRUMENT SERIAL # 8083; METHEMOGLOBIN 0.3 % (0-3); O2 CONTENT 11.3 VOL% (18-24); OPERATOR ID 14472; PCO2 (CO2 TENSION) 28 MMHG (35-45); PO2 (O2 TENSION) 61 MMHG (79-93); SAMPLE Arterial; pH 7.53 (7.37-7.43)
[2017-04-11 10:34] LABS: ALLENS TEST Pos; CARBOXYHEMOGLOBIN 0.8 % (0-3); HEMOBLOGIN CONTENT 9.1 G/DL (14-18); INSTRUMENT SERIAL # 8083; METHEMOGLOBIN 0.2 % (0-3); O2 CONTENT 12.5 VOL% (18-24); OPERATOR ID 14947; PCO2 (CO2 TENSION) 32 MMHG (35-45); PO2 (O2 TENSION) 91 MMHG (79-93); SAMPLE Arterial; pH 7.49 (7.37-7.43)
[2017-04-11 16:23] LABS: ALLENS TEST Pos; BE (BASE EXCESS) -0.6 MEQ/L (0 +/- 2.5); CARBOXYHEMOGLOBIN 0.6 % (0-3); HCO3 (ACTUAL BICARBONATE) 23.4 MEQ/L (23-27); HEMOBLOGIN CONTENT 8.6 G/DL (14-18); INSTRUMENT SERIAL # 8083; METHEMOGLOBIN 0.3 % (0-3); MODE CMV; O2 CONTENT 11.9 VOL% (18-24); OPERATOR ID 14947; PCO2 (CO2 TENSION) 36 MMHG (35-45); PO2 (O2 TENSION) 107 MMHG (79-93); SAMPLE Arterial; TIDAL VOLUME 450 ML; pH 7.44 (7.37-7.43)
[2017-04-11 16:54] LABS: INTERNATIONAL NORMAL RATI 1.5 UNITS (-); PROTIME (NOT ORD) 18.1 SEC (12.0-14.5)
[2017-04-12 03:56] LABS: ALLENS TEST Pos; BE (BASE EXCESS) -1.7 MEQ/L (0 +/- 2.5); CARBOXYHEMOGLOBIN 0.3 % (0-3); HCO3 (ACTUAL BICARBONATE) 21.8 MEQ/L (23-27); HEMOBLOGIN CONTENT 8.6 G/DL (14-18); INSTRUMENT SERIAL # 35151; METHEMOGLOBIN 0.8 % (0-3); MODE CMV; O2 CONTENT 11.6 VOL% (18-24); OPERATOR ID 13861; PCO2 (CO2 TENSION) 32 MMHG (35-45); PO2 (O2 TENSION) 86 MMHG (79-93); SAMPLE Arterial; TIDAL VOLUME 450 ML; pH 7.45 (7.37-7.43)
[2017-04-12 03:58] LABS: HEMOGLOBIN 8.3 g/dL (13.6-17.8); MEAN CORPUS HGB CONC 33.2 g/dL (32.0-36.0); MEAN CORPUSCULAR HEMOGLOB 30.9 pg (26.0-34.0); MEAN CORPUSCULAR VOLUME 92.9 fL (80-100); MEAN PLATELET VOLUME 12.7 fL (9.2-13.0); PLATELET COUNT 78 10/3/uL (150-400); RBC DISTRIBUTION WIDTH 15.6 % (12.0-16.0); RED CELL COUNT 2.69 10/6/uL (4.7-6.1); WHITE BLOOD CELLS 6.2 10/3/uL (4.5-10.5)
[2017-04-12 04:05] LABS: MANUAL DIFF YES %
[2017-04-12 04:18] LABS: CHLORIDE, SERUM 111 MMOL/L (96-112); CO2 (CARBON DIOXIDE) 22 MMOL/L (24-34); CREATININE 2.22 MG/DL (0.70-1.30); GFR AFRICAN AMERICAN 34 ML/MIN (>=60); GFR NON AFRICAN AMERICAN 29 ML/MIN (>=60); GLUCOSE, SERUM 164 MG/DL (60-99); PHOSPHORUS, SERUM 1.4 MG/DL (2.5-4.5); POTASSIUM, SERUM 3.7 MMOL/L (3.5-5.3); SODIUM, SERUM 142 MMOL/L (135-148)
[2017-04-12 04:19] LABS: ALBUMIN 3.8 G/DL (3.5-5.0); BUN (BLOOD UREA NITROGEN) 34 MG/DL (6-23); CALCIUM, SERUM 10.7 MG/DL (8.5-10.4)
[2017-04-12 04:23] LABS: LYMPHOCYTES 7 %; LYMPHOCYTES ABSOLUTE (CALC) 0.43 10/3/uL (0.67-4.30); NEUTROPHILS ABSOLUTE (CALC) 5.77 10/3/uL (2.02-8.40); PLATELET ESTIMATE DEC (ADEQUATE); RBC MORPHOLOGY NORM (NORMAL); SEGMENTED NEUTROPHIL (0) 93 %; TOTAL NUCLEATED CELLS 100
[2017-04-12 17:11] LABS: ALBUMIN 4.8 G/DL (3.5-5.0); BUN (BLOOD UREA NITROGEN) 20 MG/DL (6-23); CALCIUM, SERUM 8.9 MG/DL (8.5-10.4); CHLORIDE, SERUM 112 MMOL/L (96-112); CO2 (CARBON DIOXIDE) 27 MMOL/L (24-34); CREATININE 1.57 MG/DL (0.70-1.30); GFR AFRICAN AMERICAN 52 ML/MIN (>=60); GFR NON AFRICAN AMERICAN 45 ML/MIN (>=60); GLUCOSE, SERUM 98 MG/DL (60-99); PHOSPHORUS, SERUM 0.6 MG/DL (2.5-4.5); POTASSIUM, SERUM 3.4 MMOL/L (3.5-5.3); SODIUM, SERUM 148 MMOL/L (135-148)
[2017-04-13 04:58] LABS: ALLENS TEST Pos; CARBOXYHEMOGLOBIN 0.3 % (0-3); HCO3 (ACTUAL BICARBONATE) 23.7 MEQ/L (23-27); INSTRUMENT SERIAL # 35151; METHEMOGLOBIN 0.7 % (0-3); MODE CMV; O2 CONTENT 12.1 VOL% (18-24); OPERATOR ID 30013; PCO2 (CO2 TENSION) 31 MMHG (35-45); PO2 (O2 TENSION) 83 MMHG (79-93); SAMPLE Arterial; TIDAL VOLUME 450 ML; pH 7.51 (7.37-7.43)
[2017-04-13 07:13] LABS: BASOPHILS 0 %; EOSINOPHILS 0 %; HEMATOCRIT 24.3 % (40.0-51.0); HEMOGLOBIN 8.1 g/dL (13.6-17.8); IMMATURE GRANULOCYTES 0.3 %; IMMATURE GRANULOCYTES ABSOLUTE 0.02 10/3/uL (0.0-0.11); LYMPHOCYTES ABSOLUTE 0.55 10/3/uL (0.67-4.30); MEAN CORPUS HGB CONC 33.3 g/dL (32.0-36.0); MEAN CORPUSCULAR HEMOGLOB 30.7 pg (26.0-34.0); MEAN PLATELET VOLUME 13.2 fL (9.2-13.0); MONOCYTES 4.9 %; NEUTROPHILS 85.8 %; NEUTROPHILS ABSOLUTE 5.25 10/3/uL (2.02-8.40); PLATELET COUNT 94 10/3/uL (150-400); RED CELL COUNT 2.64 10/6/uL (4.7-6.1); WHITE BLOOD CELLS 6.1 10/3/uL (4.5-10.5)
[2017-04-13 07:14] LABS: MANUAL DIFF NO %
[2017-04-13 07:29] LABS: ALBUMIN 4.2 G/DL (3.5-5.0); CALCIUM, SERUM 8.8 MG/DL (8.5-10.4); CHLORIDE, SERUM 113 MMOL/L (96-112); CO2 (CARBON DIOXIDE) 24 MMOL/L (24-34); POTASSIUM, SERUM 3.8 MMOL/L (3.5-5.3); SGOT(AST) 12 U/L (5-40); SGPT(ALT) 13 U/L (5-65); SODIUM, SERUM 148 MMOL/L (135-148); TOTAL BILIRUBIN 0.7 MG/DL (0-1.2)
[2017-04-13 07:30] LABS: A/G RATIO 1.4 (0.7-1.9); ALKALINE PHOSPHATASE 28 U/L (45-117); BUN (BLOOD UREA NITROGEN) 38 MG/DL (6-23); CREATININE 2.87 MG/DL (0.70-1.30); GFR AFRICAN AMERICAN 25 ML/MIN (>=60); GFR NON AFRICAN AMERICAN 22 ML/MIN (>=60); GLOBULIN 3.1 G/DL (2.5-4.1); GLUCOSE, SERUM 158 MG/DL (60-99); PHOSPHORUS, SERUM 2.9 MG/DL (2.5-4.5); TOTAL PROTEIN 7.3 G/DL (6.0-8.5)
[2017-04-14 03:52] LABS: ALLENS TEST Pos; BE (BASE EXCESS) -2.3 MEQ/L (0 +/- 2.5); CARBOXYHEMOGLOBIN 0.3 % (0-3); HCO3 (ACTUAL BICARBONATE) 20.8 MEQ/L (23-27); HEMOBLOGIN CONTENT 8.9 G/DL (14-18); INSTRUMENT SERIAL # 35151; METHEMOGLOBIN 0.6 % (0-3); MODE CMV; O2 CONTENT 12.1 VOL% (18-24); OPERATOR ID 23712; PCO2 (CO2 TENSION) 30 MMHG (35-45); PO2 (O2 TENSION) 92 MMHG (79-93); SAMPLE Arterial; TIDAL VOLUME 450 ML; pH 7.47 (7.37-7.43)
[2017-04-14 03:57] LABS: CALCIUM IONIZED 4.66 MG/DL (3.80-4.80)
[2017-04-14 03:59] LABS: BASOPHILS 0 %; EOSINOPHILS 0 %; HEMATOCRIT 23.4 % (40.0-51.0); HEMOGLOBIN 7.8 g/dL (13.6-17.8); IMMATURE GRANULOCYTES 0.4 %; IMMATURE GRANULOCYTES ABSOLUTE 0.02 10/3/uL (0.0-0.11); LYMPHOCYTES 8.8 %; LYMPHOCYTES ABSOLUTE 0.47 10/3/uL (0.67-4.30); MEAN CORPUS HGB CONC 33.3 g/dL (32.0-36.0); MEAN CORPUSCULAR HEMOGLOB 30.7 pg (26.0-34.0); MEAN CORPUSCULAR VOLUME 92.1 fL (80-100); MEAN PLATELET VOLUME 12.7 fL (9.2-13.0); MONOCYTES 4.3 %; MONOCYTES ABSOLUTE 0.23 10/3/uL (0.21-1.20); NEUTROPHILS 86.5 %; NEUTROPHILS ABSOLUTE 4.63 10/3/uL (2.02-8.40); PLATELET COUNT 89 10/3/uL (150-400); RED CELL COUNT 2.54 10/6/uL (4.7-6.1); WHITE BLOOD CELLS 5.4 10/3/uL (4.5-10.5)
[2017-04-14 04:01] LABS: MANUAL DIFF NO %
[2017-04-14 04:22] LABS: A/G RATIO 1.1 (0.7-1.9); ALBUMIN 3.9 G/DL (3.5-5.0); ALKALINE PHOSPHATASE 29 U/L (45-117); BUN (BLOOD UREA NITROGEN) 69 MG/DL (6-23); CALCIUM, SERUM 8.5 MG/DL (8.5-10.4); CHLORIDE, SERUM 112 MMOL/L (96-112); CO2 (CARBON DIOXIDE) 22 MMOL/L (24-34); GFR AFRICAN AMERICAN 15 ML/MIN (>=60); GFR NON AFRICAN AMERICAN 13 ML/MIN (>=60); GLOBULIN 3.6 G/DL (2.5-4.1); GLUCOSE, SERUM 226 MG/DL (60-99); PHOSPHORUS, SERUM 3.2 MG/DL (2.5-4.5); SGOT(AST) 9 U/L (5-40); SGPT(ALT) 12 U/L (5-65); SODIUM, SERUM 146 MMOL/L (135-148); TOTAL BILIRUBIN 0.5 MG/DL (0-1.2); TOTAL PROTEIN 7.5 G/DL (6.0-8.5)
[2017-04-14 09:43] LABS: HEPATITIS B SURFACE ANTIGEN NON-REACTIVE (NON-REACT)
[2017-04-14 10:10] LABS: HEPATITIS C ANTIBODY NON-REACTIVE (NON-REACT)
[2017-04-14 10:11] LABS: HEPATITIS B CORE AB IGM NON-REACTIVE (NON-REAC)
[2017-04-14 10:12] LABS: HIV COMBO NON-REACTIVE (NON REAC)
[2017-04-14 10:13] LABS: HEP A ANTIBODY IGM NON-REACTIVE (NON-REACT)
[2017-04-14 12:37] LABS: FREE T4 0.99 NG/DL (0.76-1.46); ULTRASENSITIVE TSH 0.137 MCIU/ML (0.358-3.740)
[2017-04-15 05:36] LABS: BASOPHILS 0 %; EOSINOPHILS 0 %; IMMATURE GRANULOCYTES 0.7 %; IMMATURE GRANULOCYTES ABSOLUTE 0.04 10/3/uL (0.0-0.11); LYMPHOCYTES 11.9 %; LYMPHOCYTES ABSOLUTE 0.69 10/3/uL (0.67-4.30); MEAN CORPUS HGB CONC 33.5 g/dL (32.0-36.0); MEAN CORPUSCULAR HEMOGLOB 30.9 pg (26.0-34.0); MEAN CORPUSCULAR VOLUME 92.5 fL (80-100); MEAN PLATELET VOLUME 13.5 fL (9.2-13.0); MONOCYTES 7.9 %; MONOCYTES ABSOLUTE 0.46 10/3/uL (0.21-1.20); NEUTROPHILS 79.5 %; NEUTROPHILS ABSOLUTE 4.62 10/3/uL (2.02-8.40); PLATELET COUNT 109 10/3/uL (150-400); WHITE BLOOD CELLS 5.8 10/3/uL (4.5-10.5)
[2017-04-15 05:40] LABS: HEMATOCRIT 28.4 % (40.0-51.0); HEMOGLOBIN 9.5 g/dL (13.6-17.8); MANUAL DIFF NO %; RED CELL COUNT 3.07 10/6/uL (4.7-6.1)
[2017-04-15 05:48] LABS: ALBUMIN 4.4 G/DL (3.5-5.0); CALCIUM, SERUM 8.1 MG/DL (8.5-10.4); CHLORIDE, SERUM 115 MMOL/L (96-112); CO2 (CARBON DIOXIDE) 21 MMOL/L (24-34); PHOSPHORUS, SERUM 3.3 MG/DL (2.5-4.5); POTASSIUM, SERUM 4.5 MMOL/L (3.5-5.3); SODIUM, SERUM 145 MMOL/L (135-148)
[2017-04-15 05:49] LABS: BUN (BLOOD UREA NITROGEN) 62 MG/DL (6-23); CREATININE 3.33 MG/DL (0.70-1.30); GFR AFRICAN AMERICAN 21 ML/MIN (>=60); GFR NON AFRICAN AMERICAN 18 ML/MIN (>=60); GLUCOSE, SERUM 172 MG/DL (60-99)
[2017-04-16 03:27] LABS: BASOPHILS 0.2 %; BASOPHILS ABSOLUTE 0.01 10/3/uL (0.0-0.16); EOSINOPHILS 1.5 %; EOSINOPHILS ABSOLUTE 0.08 10/3/uL (0.0-0.53); HEMATOCRIT 25.7 % (40.0-51.0); HEMOGLOBIN 8.7 g/dL (13.6-17.8); IMMATURE GRANULOCYTES 1.3 %; IMMATURE GRANULOCYTES ABSOLUTE 0.07 10/3/uL (0.0-0.11); LYMPHOCYTES 14.6 %; LYMPHOCYTES ABSOLUTE 0.76 10/3/uL (0.67-4.30); MEAN CORPUS HGB CONC 33.9 g/dL (32.0-36.0); MEAN CORPUSCULAR HEMOGLOB 31.3 pg (26.0-34.0); MEAN CORPUSCULAR VOLUME 92.4 fL (80-100); MEAN PLATELET VOLUME 11.7 fL (9.2-13.0); MONOCYTES 7.1 %; MONOCYTES ABSOLUTE 0.37 10/3/uL (0.21-1.20); NEUTROPHILS 75.3 %; NEUTROPHILS ABSOLUTE 3.92 10/3/uL (2.02-8.40); PLATELET COUNT 106 10/3/uL (150-400); RBC DISTRIBUTION WIDTH 15.8 % (12.0-16.0); RED CELL COUNT 2.78 10/6/uL (4.7-6.1); WHITE BLOOD CELLS 5.2 10/3/uL (4.5-10.5)
[2017-04-16 03:29] LABS: MANUAL DIFF NO %
[2017-04-16 03:40] LABS: ALBUMIN 4.4 G/DL (3.5-5.0); BUN (BLOOD UREA NITROGEN) 75 MG/DL (6-23); CALCIUM, SERUM 8.6 MG/DL (8.5-10.4); CHLORIDE, SERUM 123 MMOL/L (96-112); CO2 (CARBON DIOXIDE) 18 MMOL/L (24-34); CREATININE 3.82 MG/DL (0.70-1.30); GFR AFRICAN AMERICAN 18 ML/MIN (>=60); GFR NON AFRICAN AMERICAN 15 ML/MIN (>=60); GLUCOSE, SERUM 98 MG/DL (60-99); PHOSPHORUS, SERUM 2.9 MG/DL (2.5-4.5); POTASSIUM, SERUM 3.9 MMOL/L (3.5-5.3); SODIUM, SERUM 152 MMOL/L (135-148)
[2017-04-17 03:54] LABS: BASOPHILS 0.2 %; BASOPHILS ABSOLUTE 0.01 10/3/uL (0.0-0.16); EOSINOPHILS 3.8 %; HEMATOCRIT 23.4 % (40.0-51.0); HEMOGLOBIN 7.7 g/dL (13.6-17.8); IMMATURE GRANULOCYTES 2.3 %; IMMATURE GRANULOCYTES ABSOLUTE 0.12 10/3/uL (0.0-0.11); LYMPHOCYTES 21.3 %; LYMPHOCYTES ABSOLUTE 1.13 10/3/uL (0.67-4.30); MEAN CORPUS HGB CONC 32.9 g/dL (32.0-36.0); MEAN CORPUSCULAR HEMOGLOB 30.4 pg (26.0-34.0); MEAN CORPUSCULAR VOLUME 92.5 fL (80-100); MEAN PLATELET VOLUME 12.7 fL (9.2-13.0); MONOCYTES 7.2 %; MONOCYTES ABSOLUTE 0.38 10/3/uL (0.21-1.20); NEUTROPHILS 65.2 %; NEUTROPHILS ABSOLUTE 3.46 10/3/uL (2.02-8.40); PLATELET COUNT 93 10/3/uL (150-400); RBC DISTRIBUTION WIDTH 16.1 % (12.0-16.0); RED CELL COUNT 2.53 10/6/uL (4.7-6.1); WHITE BLOOD CELLS 5.3 10/3/uL (4.5-10.5)
[2017-04-17 03:56] LABS: MANUAL DIFF NO %
[2017-04-17 04:08] LABS: ALBUMIN 4.2 G/DL (3.5-5.0); CALCIUM, SERUM 8.2 MG/DL (8.5-10.4); CHLORIDE, SERUM 124 MMOL/L (96-112); CO2 (CARBON DIOXIDE) 16 MMOL/L (24-34); CREATININE 4.01 MG/DL (0.70-1.30); GFR AFRICAN AMERICAN 17 ML/MIN (>=60); GFR NON AFRICAN AMERICAN 14 ML/MIN (>=60); POTASSIUM, SERUM 4.2 MMOL/L (3.5-5.3); SODIUM, SERUM 154 MMOL/L (135-148)
[2017-04-17 04:28] LABS: BUN (BLOOD UREA NITROGEN) 69 MG/DL (6-23); GLUCOSE, SERUM 119 MG/DL (60-99); PHOSPHORUS, SERUM 4.3 MG/DL (2.5-4.5)
[2017-04-17 07:19] LABS: PROCALCITONIN 0.43 ng/mL (<0.5)
[2017-04-18 03:52] LABS: BASOPHILS 0.4 %; BASOPHILS ABSOLUTE 0.02 10/3/uL (0.0-0.16); EOSINOPHILS 4.6 %; EOSINOPHILS ABSOLUTE 0.22 10/3/uL (0.0-0.53); HEMATOCRIT 24.6 % (40.0-51.0); HEMOGLOBIN 8.3 g/dL (13.6-17.8); IMMATURE GRANULOCYTES ABSOLUTE 0.19 10/3/uL (0.0-0.11); LYMPHOCYTES ABSOLUTE 0.48 10/3/uL (0.67-4.30); MEAN CORPUS HGB CONC 33.7 g/dL (32.0-36.0); MEAN CORPUSCULAR HEMOGLOB 31.2 pg (26.0-34.0); MEAN CORPUSCULAR VOLUME 92.5 fL (80-100); MEAN PLATELET VOLUME 12.3 fL (9.2-13.0); MONOCYTES 6.2 %; NEUTROPHILS 74.8 %; PLATELET COUNT 99 10/3/uL (150-400); RBC DISTRIBUTION WIDTH 15.7 % (12.0-16.0); RED CELL COUNT 2.66 10/6/uL (4.7-6.1); WHITE BLOOD CELLS 4.8 10/3/uL (4.5-10.5)
[2017-04-18 04:01] LABS: MANUAL DIFF NO %
[2017-04-18 05:02] LABS: BE (BASE EXCESS) 1.3 MEQ/L (0 +/- 2.5); CARBOXYHEMOGLOBIN 0.3 % (0-3); DEVICE NC; HCO3 (ACTUAL BICARBONATE) 22.7 MEQ/L (23-27); HEMOBLOGIN CONTENT 8.7 G/DL (14-18); INSTRUMENT SERIAL # 35151; METHEMOGLOBIN 0.8 % (0-3); OPERATOR ID 13861; PCO2 (CO2 TENSION) 25 MMHG (35-45); PO2 (O2 TENSION) 59 MMHG (79-93); SAMPLE Arterial; pH 7.58 (7.37-7.43)
[2017-04-18 05:03] LABS: ALLENS TEST Pos
[2017-04-18 05:54] LABS: ALBUMIN 3.9 G/DL (3.5-5.0); BUN (BLOOD UREA NITROGEN) 42 MG/DL (6-23); CALCIUM, SERUM 7.9 MG/DL (8.5-10.4); CHLORIDE, SERUM 107 MMOL/L (96-112); CO2 (CARBON DIOXIDE) 26 MMOL/L (24-34); CREATININE 4.04 MG/DL (0.70-1.30); GFR AFRICAN AMERICAN 16 ML/MIN (>=60); GFR NON AFRICAN AMERICAN 14 ML/MIN (>=60); GLUCOSE, SERUM 111 MG/DL (60-99); POTASSIUM, SERUM 3.5 MMOL/L (3.5-5.3); SODIUM, SERUM 142 MMOL/L (135-148); VANCOMYCIN TROUGH 21.5 MCG/ML (10.0-20.0)
[2017-04-18 09:20] LABS: BASOPHILS 0.4 %; BASOPHILS ABSOLUTE 0.02 10/3/uL (0.0-0.16); EOSINOPHILS 3.6 %; HEMOGLOBIN 7.9 g/dL (13.6-17.8); IMMATURE GRANULOCYTES 2.5 %; IMMATURE GRANULOCYTES ABSOLUTE 0.14 10/3/uL (0.0-0.11); LYMPHOCYTES 16.3 %; LYMPHOCYTES ABSOLUTE 0.91 10/3/uL (0.67-4.30); MANUAL DIFF NO %; MEAN CORPUS HGB CONC 34.3 g/dL (32.0-36.0); MEAN CORPUSCULAR HEMOGLOB 31.3 pg (26.0-34.0); MEAN CORPUSCULAR VOLUME 91.3 fL (80-100); MEAN PLATELET VOLUME 12.3 fL (9.2-13.0); MONOCYTES ABSOLUTE 0.45 10/3/uL (0.21-1.20); NEUTROPHILS 69.2 %; NEUTROPHILS ABSOLUTE 3.88 10/3/uL (2.02-8.40); PLATELET COUNT 99 10/3/uL (150-400); RBC DISTRIBUTION WIDTH 15.9 % (12.0-16.0); RED CELL COUNT 2.52 10/6/uL (4.7-6.1); WHITE BLOOD CELLS 5.6 10/3/uL (4.5-10.5)
[2017-04-18 12:03] LABS: WBC (NOT ORDERED) (RFLEX) 0 (0-5)
[2017-04-18 12:25] LABS: ASCORBIC ACID (UR NOT ORDER) NEG (NEG); BILIRUBIN, URINE NEGATIVE (NEG); KETONE, URINE NEGATIVE (NEG); LEUKOCYTE ESTERASE(NOT OR NEG (NEG)
[2017-04-19 03:48] LABS: HEMOGLOBIN 7.2 g/dL (13.6-17.8); MEAN CORPUS HGB CONC 32.7 g/dL (32.0-36.0); MEAN CORPUSCULAR HEMOGLOB 30.5 pg (26.0-34.0); MEAN CORPUSCULAR VOLUME 93.2 fL (80-100); MEAN PLATELET VOLUME 12.5 fL (9.2-13.0); PLATELET COUNT 84 10/3/uL (150-400); RBC DISTRIBUTION WIDTH 16.7 % (12.0-16.0); RED CELL COUNT 2.36 10/6/uL (4.7-6.1); WHITE BLOOD CELLS 6.6 10/3/uL (4.5-10.5)
[2017-04-19 03:49] LABS: MANUAL DIFF YES %
[2017-04-19 04:12] LABS: A/G RATIO 1.1 (0.7-1.9); ALBUMIN 3.4 G/DL (3.5-5.0); CHLORIDE, SERUM 105 MMOL/L (96-112); CO2 (CARBON DIOXIDE) 23 MMOL/L (24-34); GLOBULIN 3.2 G/DL (2.5-4.1); GLUCOSE, SERUM 101 MG/DL (60-99); POTASSIUM, SERUM 3.4 MMOL/L (3.5-5.3); SGOT(AST) 166 U/L (5-40); SGPT(ALT) 95 U/L (5-65); SODIUM, SERUM 141 MMOL/L (135-148); TOTAL BILIRUBIN 0.7 MG/DL (0-1.2); TOTAL PROTEIN 6.6 G/DL (6.0-8.5); VANCOMYCIN TROUGH 24.7 MCG/ML (10.0-20.0)
[2017-04-19 04:13] LABS: ALKALINE PHOSPHATASE 44 U/L (45-117); BUN (BLOOD UREA NITROGEN) 67 MG/DL (6-23); CALCIUM, SERUM 6.8 MG/DL (8.5-10.4); CREATININE 7.05 MG/DL (0.70-1.30); GFR AFRICAN AMERICAN 8 ML/MIN (>=60); GFR NON AFRICAN AMERICAN 7 ML/MIN (>=60); PHOSPHORUS, SERUM 8.4 MG/DL (2.5-4.5)
[2017-04-19 06:34] LABS: BAND NEUTROPHILS 10 %; LYMPHOCYTES 20 %; LYMPHOCYTES ABSOLUTE (CALC) 1.32 10/3/uL (0.67-4.30); MONOCYTES 5 %; MONOCYTES ABSOLUTE (CALC) 0.33 10/3/uL (0.21-1.20); NEUTROPHILS ABSOLUTE (CALC) 4.95 10/3/uL (2.02-8.40); PLATELET ESTIMATE DEC (ADEQUATE); RBC MORPHOLOGY NORM (NORMAL); SEGMENTED NEUTROPHIL (0) 65 %; TOTAL NUCLEATED CELLS 100
[2017-04-19 12:08] LABS: # HR UR COLLECT (NOT ORD) 24; CREAT SERUM (NOT ORDER) 7.05 MG/DL (0.53-1.43); URINE TOTAL VOL (NOT ORD) 45 ML
[2017-04-19 12:20] LABS: CREAT CLEAR (NOT ORDER) 0.7 ML/MIN (85-125)
[2017-04-19 12:21] LABS: URINE CREAT 0.07 G/T VOL (0.6-2.8)
[2017-04-20 03:27] LABS: MEAN CORPUSCULAR VOLUME 91.1 fL (80-100); MEAN PLATELET VOLUME 12.1 fL (9.2-13.0); PLATELET COUNT 90 10/3/uL (150-400); RBC DISTRIBUTION WIDTH 16.2 % (12.0-16.0); RED CELL COUNT 2.81 10/6/uL (4.7-6.1)
[2017-04-20 03:28] LABS: HEMATOCRIT 25.6 % (40.0-51.0); HEMOGLOBIN 8.7 g/dL (13.6-17.8); WHITE BLOOD CELLS 13.4 10/3/uL (4.5-10.5)
[2017-04-20 03:29] LABS: MANUAL DIFF YES %
[2017-04-20 03:43] LABS: A/G RATIO 0.9 (0.7-1.9); ALBUMIN 3.4 G/DL (3.5-5.0); ALKALINE PHOSPHATASE 46 U/L (45-117); CALCIUM, SERUM 7.3 MG/DL (8.5-10.4); CHLORIDE, SERUM 101 MMOL/L (96-112); CO2 (CARBON DIOXIDE) 23 MMOL/L (24-34); GLOBULIN 3.7 G/DL (2.5-4.1); PHOSPHORUS, SERUM 7.9 MG/DL (2.5-4.5); SGOT(AST) 123 U/L (5-40); SGPT(ALT) 83 U/L (5-65); SODIUM, SERUM 136 MMOL/L (135-148); TOTAL BILIRUBIN 0.7 MG/DL (0-1.2); TOTAL PROTEIN 7.1 G/DL (6.0-8.5)
[2017-04-20 03:46] LABS: BUN (BLOOD UREA NITROGEN) 61 MG/DL (6-23); CREATININE 5.79 MG/DL (0.70-1.30); GFR AFRICAN AMERICAN 11 ML/MIN (>=60); GFR NON AFRICAN AMERICAN 9 ML/MIN (>=60); GLUCOSE, SERUM 163 MG/DL (60-99); POTASSIUM, SERUM 5.1 MMOL/L (3.5-5.3)
[2017-04-20 03:54] LABS: BAND NEUTROPHILS 8 %; BASOPHILS 1 %; BASOPHILS ABSOLUTE (CALC) 0.13 10/3/uL (0.0-0.16); LYMPHOCYTES 6 %; MONOCYTES 2 %; MONOCYTES ABSOLUTE (CALC) 0.27 10/3/uL (0.21-1.20); NEUTROPHILS ABSOLUTE (CALC) 12.19 10/3/uL (2.02-8.40); PLATELET ESTIMATE DEC (ADEQUATE); RBC MORPHOLOGY NORM (NORMAL); SEGMENTED NEUTROPHIL (0) 83 %; TOTAL NUCLEATED CELLS 100
[2017-04-21 04:47] LABS: HEMATOCRIT 23.7 % (40.0-51.0); HEMOGLOBIN 8.2 g/dL (13.6-17.8); MEAN CORPUS HGB CONC 34.6 g/dL (32.0-36.0); MEAN CORPUSCULAR HEMOGLOB 31.1 pg (26.0-34.0); MEAN CORPUSCULAR VOLUME 89.8 fL (80-100); MEAN PLATELET VOLUME 12.5 fL (9.2-13.0); PLATELET COUNT 85 10/3/uL (150-400); RBC DISTRIBUTION WIDTH 15.9 % (12.0-16.0); RED CELL COUNT 2.64 10/6/uL (4.7-6.1); WHITE BLOOD CELLS 11.3 10/3/uL (4.5-10.5)
[2017-04-21 04:59] LABS: MANUAL DIFF YES %
[2017-04-21 05:10] LABS: ALBUMIN 3.1 G/DL (3.5-5.0); CHLORIDE, SERUM 97 MMOL/L (96-112); CO2 (CARBON DIOXIDE) 22 MMOL/L (24-34); SODIUM, SERUM 134 MMOL/L (135-148)
[2017-04-21 05:19] LABS: BUN (BLOOD UREA NITROGEN) 85 MG/DL (6-23); CREATININE 7.39 MG/DL (0.70-1.30); GFR AFRICAN AMERICAN 8 ML/MIN (>=60); GFR NON AFRICAN AMERICAN 7 ML/MIN (>=60); GLUCOSE, SERUM 109 MG/DL (60-99); POTASSIUM, SERUM 3.5 MMOL/L (3.5-5.3)
[2017-04-21 05:20] LABS: CALCIUM, SERUM 6.8 MG/DL (8.5-10.4)
[2017-04-21 06:47] LABS: BAND NEUTROPHILS 1 %; LYMPHOCYTES 15 %; NEUTROPHILS ABSOLUTE (CALC) 9.61 10/3/uL (2.02-8.40); PLATELET ESTIMATE DEC (ADEQUATE); SEGMENTED NEUTROPHIL (0) 84 %; TOTAL NUCLEATED CELLS 100
[2017-04-21 06:49] LABS: TEARDROP SHAPED RBCS OCC (0-2/OIF)
[2017-04-22 04:48] LABS: BASOPHILS 0.3 %; BASOPHILS ABSOLUTE 0.02 10/3/uL (0.0-0.16); EOSINOPHILS 0.9 %; EOSINOPHILS ABSOLUTE 0.07 10/3/uL (0.0-0.53); HEMATOCRIT 25.3 % (40.0-51.0); HEMOGLOBIN 8.8 g/dL (13.6-17.8); IMMATURE GRANULOCYTES 0.5 %; IMMATURE GRANULOCYTES ABSOLUTE 0.04 10/3/uL (0.0-0.11); LYMPHOCYTES 13.1 %; LYMPHOCYTES ABSOLUTE 0.99 10/3/uL (0.67-4.30); MEAN CORPUS HGB CONC 34.8 g/dL (32.0-36.0); MEAN CORPUSCULAR HEMOGLOB 31.3 pg (26.0-34.0); MEAN PLATELET VOLUME 13.1 fL (9.2-13.0); MONOCYTES ABSOLUTE 0.38 10/3/uL (0.21-1.20); NEUTROPHILS 80.2 %; NEUTROPHILS ABSOLUTE 6.03 10/3/uL (2.02-8.40); PLATELET COUNT 83 10/3/uL (150-400); RBC DISTRIBUTION WIDTH 15.2 % (12.0-16.0); RED CELL COUNT 2.81 10/6/uL (4.7-6.1); WHITE BLOOD CELLS 7.5 10/3/uL (4.5-10.5)
[2017-04-22 04:51] LABS: MANUAL DIFF NO %
[2017-04-22 05:05] LABS: CALCIUM, SERUM 7.1 MG/DL (8.5-10.4); CHLORIDE, SERUM 95 MMOL/L (96-112); CO2 (CARBON DIOXIDE) 22 MMOL/L (24-34); GFR AFRICAN AMERICAN 6 ML/MIN (>=60); GFR NON AFRICAN AMERICAN 5 ML/MIN (>=60); GLUCOSE, SERUM 93 MG/DL (60-99); PHOSPHORUS, SERUM 7.1 MG/DL (2.5-4.5); POTASSIUM, SERUM 3.7 MMOL/L (3.5-5.3); SODIUM, SERUM 132 MMOL/L (135-148)
[2017-04-22 05:11] LABS: BUN (BLOOD UREA NITROGEN) 94 MG/DL (6-23); CREATININE 9.08 MG/DL (0.70-1.30)
[2017-04-22 05:46] LABS: PROCALCITONIN 5.23 ng/mL (<0.5)
[2017-04-23 09:05] LABS: BASOPHILS 0.2 %; BASOPHILS ABSOLUTE 0.01 10/3/uL (0.0-0.16); EOSINOPHILS 1.1 %; EOSINOPHILS ABSOLUTE 0.05 10/3/uL (0.0-0.53); HEMATOCRIT 24.3 % (40.0-51.0); HEMOGLOBIN 8.4 g/dL (13.6-17.8); IMMATURE GRANULOCYTES 0.2 %; IMMATURE GRANULOCYTES ABSOLUTE 0.01 10/3/uL (0.0-0.11); LYMPHOCYTES 16.1 %; LYMPHOCYTES ABSOLUTE 0.73 10/3/uL (0.67-4.30); MEAN CORPUS HGB CONC 34.6 g/dL (32.0-36.0); MEAN CORPUSCULAR HEMOGLOB 31.5 pg (26.0-34.0); MEAN PLATELET VOLUME 13.3 fL (9.2-13.0); MONOCYTES 5.3 %; MONOCYTES ABSOLUTE 0.24 10/3/uL (0.21-1.20); NEUTROPHILS 77.1 %; PLATELET COUNT 71 10/3/uL (150-400); RBC DISTRIBUTION WIDTH 15.3 % (12.0-16.0); RED CELL COUNT 2.67 10/6/uL (4.7-6.1); WHITE BLOOD CELLS 4.5 10/3/uL (4.5-10.5)
[2017-04-23 09:06] LABS: MANUAL DIFF NO %
[2017-04-23 09:26] LABS: A/G RATIO 0.8 (0.7-1.9); ALBUMIN 3.2 G/DL (3.5-5.0); ALKALINE PHOSPHATASE 53 U/L (45-117); BUN (BLOOD UREA NITROGEN) 52 MG/DL (6-23); CALCIUM, SERUM 7.7 MG/DL (8.5-10.4); CHLORIDE, SERUM 101 MMOL/L (96-112); CO2 (CARBON DIOXIDE) 25 MMOL/L (24-34); CREATININE 7.26 MG/DL (0.70-1.30); GFR AFRICAN AMERICAN 8 ML/MIN (>=60); GFR NON AFRICAN AMERICAN 7 ML/MIN (>=60); GLOBULIN 4.2 G/DL (2.5-4.1); GLUCOSE, SERUM 85 MG/DL (60-99); POTASSIUM, SERUM 3.9 MMOL/L (3.5-5.3); SGOT(AST) 32 U/L (5-40); SGPT(ALT) 35 U/L (5-65); SODIUM, SERUM 139 MMOL/L (135-148); TOTAL BILIRUBIN 1.2 MG/DL (0-1.2); TOTAL PROTEIN 7.4 G/DL (6.0-8.5)
[2017-04-23 09:31] LABS: PLATELET ESTIMATE DEC (ADEQUATE)
[2017-04-23 09:32] LABS: RBC MORPHOLOGY NORM (NORMAL)
[2017-04-23 11:07] LABS: ASCORBIC ACID (UR NOT ORDER) NEG (NEG); BILIRUBIN, URINE NEGATIVE (NEG); KETONE, URINE NEGATIVE (NEG); LEUKOCYTE ESTERASE(NOT OR SMALL (NEG); WBC (NOT ORDERED) (RFLEX) 3 (0-5)
[2017-04-23 15:53] LABS: BE (BASE EXCESS) -3.1 MEQ/L (0 +/- 2.5); CARBOXYHEMOGLOBIN 0.8 % (0-3); HCO3 (ACTUAL BICARBONATE) 20.7 MEQ/L (23-27); INSTRUMENT SERIAL # 8083; METHEMOGLOBIN 0.5 % (0-3); PCO2 (CO2 TENSION) 32 MMHG (35-45); PO2 (O2 TENSION) 83 MMHG (79-93); pH 7.43 (7.37-7.43)
[2017-04-23 15:54] LABS: ALLENS TEST Pos; DEVICE NC; HEMOBLOGIN CONTENT 7.9 G/DL (14-18); O2 CONTENT 10.6 VOL% (18-24); OPERATOR ID 35784; SAMPLE Arterial
[2017-04-24 08:02] LABS: BASOPHILS 0.1 %; BASOPHILS ABSOLUTE 0.01 10/3/uL (0.0-0.16); EOSINOPHILS 0 %; HEMOGLOBIN 7.6 g/dL (13.6-17.8); IMMATURE GRANULOCYTES 0.6 %; IMMATURE GRANULOCYTES ABSOLUTE 0.04 10/3/uL (0.0-0.11); LYMPHOCYTES ABSOLUTE 0.42 10/3/uL (0.67-4.30); MEAN CORPUSCULAR HEMOGLOB 31.1 pg (26.0-34.0); MEAN CORPUSCULAR VOLUME 88.9 fL (80-100); MEAN PLATELET VOLUME 13.2 fL (9.2-13.0); MONOCYTES 1.9 %; MONOCYTES ABSOLUTE 0.13 10/3/uL (0.21-1.20); NEUTROPHILS 91.4 %; NEUTROPHILS ABSOLUTE 6.37 10/3/uL (2.02-8.40); PLATELET COUNT 70 10/3/uL (150-400); RBC DISTRIBUTION WIDTH 15.3 % (12.0-16.0); RED CELL COUNT 2.44 10/6/uL (4.7-6.1)
[2017-04-24 08:03] LABS: HEMATOCRIT 21.7 % (40.0-51.0); MANUAL DIFF NO %
[2017-04-25 06:55] LABS: BASOPHILS 0.2 %; BASOPHILS ABSOLUTE 0.01 10/3/uL (0.0-0.16); EOSINOPHILS 0 %; HEMATOCRIT 21.3 % (40.0-51.0); HEMOGLOBIN 7.3 g/dL (13.6-17.8); IMMATURE GRANULOCYTES 0.6 %; IMMATURE GRANULOCYTES ABSOLUTE 0.04 10/3/uL (0.0-0.11); LYMPHOCYTES 10.6 %; LYMPHOCYTES ABSOLUTE 0.68 10/3/uL (0.67-4.30); MEAN CORPUS HGB CONC 34.3 g/dL (32.0-36.0); MEAN CORPUSCULAR HEMOGLOB 30.9 pg (26.0-34.0); MEAN CORPUSCULAR VOLUME 90.3 fL (80-100); MEAN PLATELET VOLUME 12.9 fL (9.2-13.0); MONOCYTES 6.6 %; MONOCYTES ABSOLUTE 0.42 10/3/uL (0.21-1.20); NEUTROPHILS ABSOLUTE 5.26 10/3/uL (2.02-8.40); PLATELET COUNT 68 10/3/uL (150-400); RBC DISTRIBUTION WIDTH 15.7 % (12.0-16.0); RED CELL COUNT 2.36 10/6/uL (4.7-6.1); WHITE BLOOD CELLS 6.4 10/3/uL (4.5-10.5)
[2017-04-25 06:56] LABS: MANUAL DIFF NO %
[2017-04-25 07:09] LABS: ALBUMIN 2.9 G/DL (3.5-5.0); BUN (BLOOD UREA NITROGEN) 51 MG/DL (6-23); CALCIUM, SERUM 7.5 MG/DL (8.5-10.4); CHLORIDE, SERUM 100 MMOL/L (96-112); CO2 (CARBON DIOXIDE) 25 MMOL/L (24-34); CREATININE 6.87 MG/DL (0.70-1.30); GFR AFRICAN AMERICAN 9 ML/MIN (>=60); GFR NON AFRICAN AMERICAN 7 ML/MIN (>=60); GLUCOSE, SERUM 133 MG/DL (60-99); PHOSPHORUS, SERUM 4.1 MG/DL (2.5-4.5); POTASSIUM, SERUM 3.9 MMOL/L (3.5-5.3); SODIUM, SERUM 135 MMOL/L (135-148)
[2017-04-25 07:23] LABS: PLATELET ESTIMATE DEC (ADEQUATE); POLYCHROMASIA 1+ (2-5/OIF) (0-1/OIF)
[2017-04-25 07:43] LABS: PROCALCITONIN 3.87 ng/mL (<0.5)
[2017-04-26 08:54] LABS: BASOPHILS 0.2 %; BASOPHILS ABSOLUTE 0.01 10/3/uL (0.0-0.16); EOSINOPHILS 2.6 %; EOSINOPHILS ABSOLUTE 0.12 10/3/uL (0.0-0.53); HEMATOCRIT 22.6 % (40.0-51.0); HEMOGLOBIN 7.7 g/dL (13.6-17.8); IMMATURE GRANULOCYTES 1.1 %; IMMATURE GRANULOCYTES ABSOLUTE 0.05 10/3/uL (0.0-0.11); LYMPHOCYTES 23.1 %; LYMPHOCYTES ABSOLUTE 1.06 10/3/uL (0.67-4.30); MEAN CORPUS HGB CONC 34.1 g/dL (32.0-36.0); MEAN CORPUSCULAR VOLUME 91.1 fL (80-100); MEAN PLATELET VOLUME 13.1 fL (9.2-13.0); MONOCYTES 7.4 %; MONOCYTES ABSOLUTE 0.34 10/3/uL (0.21-1.20); NEUTROPHILS 65.6 %; PLATELET COUNT 76 10/3/uL (150-400); RBC DISTRIBUTION WIDTH 15.6 % (12.0-16.0); RED CELL COUNT 2.48 10/6/uL (4.7-6.1); WHITE BLOOD CELLS 4.6 10/3/uL (4.5-10.5)
[2017-04-26 08:55] LABS: MANUAL DIFF NO %
[2017-04-26 09:02] LABS: ALBUMIN 2.8 G/DL (3.5-5.0); BUN (BLOOD UREA NITROGEN) 61 MG/DL (6-23); CALCIUM, SERUM 7.7 MG/DL (8.5-10.4); CHLORIDE, SERUM 97 MMOL/L (96-112); CO2 (CARBON DIOXIDE) 27 MMOL/L (24-34); CREATININE 8.26 MG/DL (0.70-1.30); GFR AFRICAN AMERICAN 7 ML/MIN (>=60); GFR NON AFRICAN AMERICAN 6 ML/MIN (>=60); GLUCOSE, SERUM 95 MG/DL (60-99); PHOSPHORUS, SERUM 4.3 MG/DL (2.5-4.5); POTASSIUM, SERUM 3.8 MMOL/L (3.5-5.3); SODIUM, SERUM 134 MMOL/L (135-148)
[2017-04-26 09:53] LABS: PLATELET ESTIMATE DEC (ADEQUATE); RBC MORPHOLOGY NORM (NORMAL)
[2017-04-27 05:23] LABS: BASOPHILS 0.2 %; BASOPHILS ABSOLUTE 0.02 10/3/uL (0.0-0.16); EOSINOPHILS 0.1 %; EOSINOPHILS ABSOLUTE 0.01 10/3/uL (0.0-0.53); HEMOGLOBIN 8.6 g/dL (13.6-17.8); IMMATURE GRANULOCYTES ABSOLUTE 0.16 10/3/uL (0.0-0.11); LYMPHOCYTES 8.7 %; MEAN CORPUS HGB CONC 33.2 g/dL (32.0-36.0); MEAN CORPUSCULAR HEMOGLOB 30.9 pg (26.0-34.0); MEAN CORPUSCULAR VOLUME 93.2 fL (80-100); MONOCYTES 3.6 %; MONOCYTES ABSOLUTE 0.29 10/3/uL (0.21-1.20); NEUTROPHILS 85.4 %; NEUTROPHILS ABSOLUTE 6.91 10/3/uL (2.02-8.40); PLATELET COUNT 78 10/3/uL (150-400); RBC DISTRIBUTION WIDTH 15.7 % (12.0-16.0); RED CELL COUNT 2.78 10/6/uL (4.7-6.1)
[2017-04-27 05:25] LABS: WHITE BLOOD CELLS 8.1 10/3/uL (4.5-10.5)
[2017-04-27 05:26] LABS: HEMATOCRIT 25.9 % (40.0-51.0); MANUAL DIFF NO %
[2017-04-27 05:43] LABS: ALBUMIN 3.1 G/DL (3.5-5.0); BUN (BLOOD UREA NITROGEN) 39 MG/DL (6-23); CALCIUM, SERUM 7.9 MG/DL (8.5-10.4); CHLORIDE, SERUM 102 MMOL/L (96-112); CO2 (CARBON DIOXIDE) 25 MMOL/L (24-34); CREATININE 5.54 MG/DL (0.70-1.30); GFR AFRICAN AMERICAN 11 ML/MIN (>=60); GFR NON AFRICAN AMERICAN 10 ML/MIN (>=60); GLUCOSE, SERUM 113 MG/DL (60-99); PHOSPHORUS, SERUM 3.4 MG/DL (2.5-4.5); POTASSIUM, SERUM 4.6 MMOL/L (3.5-5.3); SODIUM, SERUM 136 MMOL/L (135-148)
[2017-04-27 05:49] LABS: PLATELET ESTIMATE DEC (ADEQUATE); RBC MORPHOLOGY NORM (NORMAL)
[2017-04-28 08:28] LABS: BASOPHILS 0.1 %; BASOPHILS ABSOLUTE 0.01 10/3/uL (0.0-0.16); EOSINOPHILS 0.3 %; EOSINOPHILS ABSOLUTE 0.02 10/3/uL (0.0-0.53); HEMATOCRIT 25.2 % (40.0-51.0); HEMOGLOBIN 8.4 g/dL (13.6-17.8); IMMATURE GRANULOCYTES 1.4 %; IMMATURE GRANULOCYTES ABSOLUTE 0.11 10/3/uL (0.0-0.11); LYMPHOCYTES 20.2 %; MEAN CORPUS HGB CONC 33.3 g/dL (32.0-36.0); MEAN CORPUSCULAR HEMOGLOB 30.7 pg (26.0-34.0); MONOCYTES 5.9 %; MONOCYTES ABSOLUTE 0.47 10/3/uL (0.21-1.20); NEUTROPHILS 72.1 %; NEUTROPHILS ABSOLUTE 5.73 10/3/uL (2.02-8.40); PLATELET COUNT 66 10/3/uL (150-400); RBC DISTRIBUTION WIDTH 16.2 % (12.0-16.0); RED CELL COUNT 2.74 10/6/uL (4.7-6.1); WHITE BLOOD CELLS 7.9 10/3/uL (4.5-10.5)
[2017-04-28 08:30] LABS: MANUAL DIFF NO %
[2017-04-28 08:43] LABS: ALBUMIN 2.9 G/DL (3.5-5.0); CALCIUM, SERUM 7.9 MG/DL (8.5-10.4); CHLORIDE, SERUM 99 MMOL/L (96-112); CO2 (CARBON DIOXIDE) 24 MMOL/L (24-34); GLUCOSE, SERUM 128 MG/DL (60-99); SODIUM, SERUM 137 MMOL/L (135-148)
[2017-04-28 08:45] LABS: BUN (BLOOD UREA NITROGEN) 61 MG/DL (6-23); CREATININE 7.52 MG/DL (0.70-1.30); GFR AFRICAN AMERICAN 8 ML/MIN (>=60); GFR NON AFRICAN AMERICAN 7 ML/MIN (>=60); PHOSPHORUS, SERUM 5.1 MG/DL (2.5-4.5)
[2017-04-28 08:48] LABS: ANISOCYTOSIS 1+ (5-10/OIF) (0-5/OIF); PLATELET ESTIMATE DEC (ADEQUATE)
[2017-04-29 03:36] LABS: BASOPHILS 0.2 %; BASOPHILS ABSOLUTE 0.01 10/3/uL (0.0-0.16); EOSINOPHILS 0.9 %; EOSINOPHILS ABSOLUTE 0.06 10/3/uL (0.0-0.53); HEMATOCRIT 24.3 % (40.0-51.0); HEMOGLOBIN 8.1 g/dL (13.6-17.8); IMMATURE GRANULOCYTES 1.8 %; IMMATURE GRANULOCYTES ABSOLUTE 0.12 10/3/uL (0.0-0.11); LYMPHOCYTES 22.6 %; LYMPHOCYTES ABSOLUTE 1.49 10/3/uL (0.67-4.30); MEAN CORPUS HGB CONC 33.3 g/dL (32.0-36.0); MEAN CORPUSCULAR HEMOGLOB 30.7 pg (26.0-34.0); MEAN PLATELET VOLUME 12.1 fL (9.2-13.0); MONOCYTES 7.4 %; MONOCYTES ABSOLUTE 0.49 10/3/uL (0.21-1.20); NEUTROPHILS 67.1 %; NEUTROPHILS ABSOLUTE 4.43 10/3/uL (2.02-8.40); PLATELET COUNT 54 10/3/uL (150-400); RBC DISTRIBUTION WIDTH 15.8 % (12.0-16.0); RED CELL COUNT 2.64 10/6/uL (4.7-6.1); WHITE BLOOD CELLS 6.6 10/3/uL (4.5-10.5)
[2017-04-29 03:39] LABS: MANUAL DIFF NO %
[2017-04-29 03:47] LABS: ALBUMIN 2.8 G/DL (3.5-5.0); CALCIUM, SERUM 8.1 MG/DL (8.5-10.4); CHLORIDE, SERUM 99 MMOL/L (96-112); CO2 (CARBON DIOXIDE) 23 MMOL/L (24-34); POTASSIUM, SERUM 4.2 MMOL/L (3.5-5.3); SODIUM, SERUM 133 MMOL/L (135-148)
[2017-04-29 03:48] LABS: BUN (BLOOD UREA NITROGEN) 72 MG/DL (6-23); CREATININE 8.44 MG/DL (0.70-1.30); GFR AFRICAN AMERICAN 7 ML/MIN (>=60); GFR NON AFRICAN AMERICAN 6 ML/MIN (>=60); GLUCOSE, SERUM 95 MG/DL (60-99)
[2017-04-29 04:04] LABS: PLATELET ESTIMATE DEC (ADEQUATE); TARGET CELLS FEW (3-10/OIF) (0-1/OIF); TEARDROP SHAPED RBCS FEW (3-10/OIF)
== END 2017-04-29 22:30 | disposition hospice, home (50) | DRG 823 ==
LOC: ER 16:19 → 4SO 04-09 00:44 → IMCU 04-11 09:51 → 4SO 04-11 10:02 → IMCU 04-11 10:23 → CCU 04-11 16:51 → 2SO 04-21 16:52 → 4EA 04-23 11:59
PROVIDERS: Emergency Medicine; Internal Medicine; Internal Medicine Critical Care Medicine; Internal Medicine Hematology & Oncology; Internal Medicine Nephrology; Internal Medicine Pulmonary Disease; Nurse Practitioner; Nurse Practitioner Acute Care
PROC: 07DR3ZX Extraction of Iliac Bone Marrow, Percutaneous Approach, Diagnostic (ICD-10-PCS; 2017-04-09)
PROC: 5A09457 Assistance with Respiratory Ventilation, 24-96 Consecutive Hours, Continuous Positive Airway Pressure (ICD-10-PCS; 2017-04-10)
PROC: 05HM33Z Insertion of Infusion Device into Right Internal Jugular Vein, Percutaneous Approach (ICD-10-PCS; principal; 2017-04-11)
PROC: 5A1935Z Respiratory Ventilation, Less than 24 Consecutive Hours (ICD-10-PCS; 2017-04-11)
PROC: 0PS43ZZ Reposition Thoracic Vertebra, Percutaneous Approach (ICD-10-PCS; 2017-04-11)
PROC: B543ZZA Ultrasonography of Right Jugular Veins, Guidance (ICD-10-PCS; 2017-04-11)
PROC: 0PU43JZ Supplement Thoracic Vertebra with Synthetic Substitute, Percutaneous Approach (ICD-10-PCS; 2017-04-11)
PROC: 0PB43ZX Excision of Thoracic Vertebra, Percutaneous Approach, Diagnostic (ICD-10-PCS; 2017-04-11)
PROC: 0BH17EZ Insertion of Endotracheal Airway into Trachea, Via Natural or Artificial Opening (ICD-10-PCS; 2017-04-11)
PROC: 05HM33Z Insertion of Infusion Device into Right Internal Jugular Vein, Percutaneous Approach (ICD-10-PCS; 2017-04-11)
PROC: B5131ZA Fluoroscopy of Right Jugular Veins using Low Osmolar Contrast, Guidance (ICD-10-PCS; 2017-04-11)
PROC: 6A551Z3 Pheresis of Plasma, Multiple (ICD-10-PCS; 2017-04-11)
PROC: 5A1D60Z (ICD-10-PCS; 2017-04-16)
PROC: 3E03305 Introduction of Other Antineoplastic into Peripheral Vein, Percutaneous Approach (ICD-10-PCS; 2017-04-16)
DX: C90.00 Multiple myeloma not having achieved remission (principal); G93.41 Metabolic encephalopathy; J96.01 Acute respiratory failure with hypoxia; R65.21 Severe sepsis with septic shock; A41.9 Sepsis, unspecified organism; N17.9 Acute kidney failure, unspecified; S22.088A Other fracture of T11-T12 vertebra, initial encounter for closed fracture; N18.6 End stage renal disease; I12.0 Hypertensive chronic kidney disease with stage 5 chronic kidney disease or end stage renal disease; E72.4 Disorders of ornithine metabolism; M84.58XA Pathological fracture in neoplastic disease, other specified site, initial encounter for fracture; S32.018A Other fracture of first lumbar vertebra, initial encounter for closed fracture; S22.49XA Multiple fractures of ribs, unspecified side, initial encounter for closed fracture; D75.1 Secondary polycythemia; E83.52 Hypercalcemia; W18.2XXA Fall in (into) shower or empty bathtub, initial encounter; K21.9 Gastro-esophageal reflux disease without esophagitis; F32.9 Major depressive disorder, single episode, unspecified; D69.6 Thrombocytopenia, unspecified; M54.9 Dorsalgia, unspecified; N40.0 Benign prostatic hyperplasia without lower urinary tract symptoms; I73.9 Peripheral vascular disease, unspecified; D64.9 Anemia, unspecified; E53.8 Deficiency of other specified B group vitamins; E83.42 Hypomagnesemia; E83.39 Other disorders of phosphorus metabolism; I48.91 Unspecified atrial fibrillation; R13.10 Dysphagia, unspecified; Z79.891 Long term (current) use of opiate analgesic; Z79.899 Other long term (current) drug therapy; Y93.E1 Activity, personal bathing and showering; Y92.002 Bathroom of unspecified non-institutional (private) residence as the place of occurrence of the external cause; Z87.11 Personal history of peptic ulcer disease
CPT/HCPCS: 22513; 31720; 36415; 36514; 36558; 36569; 36600; 70450; 71010; 71020; 72128; 72131; 74000; 74176; 76937; 77001; 80048; 80053; 80069; 80074; 80076; 80202; 81001; 81050; 82140; 82330; 82575; 82607; 82728; 82746; 82784; 82805; 82962; 83036; 83516; 83516-59; 83520; 83540; 83550; 83605; 83690; 83735; 83880; 84100; 84145; 84155; 84165; 84439; 84443; 84484; 85025; 85045; 85610; 85730; 85810; 86334; 86850; 86900; 86901; 86920; 87040; 87070; 87086; 87205; 87389; 87493; 87493-59; 87641; 88305; 88307; 88311; 88313; 88360; 88367; 92610-GN; 93005; 94002; 94003; 94640; 94660; 94770; 95816; 96365; 96375; 97110-GO; 97110-GP; 97116-GP; 97162-GP; 97164-GP; 97166-GO; 97530-GO; 97530-GP; 97535-GO; 99285; A9270-GY; C1751; C1752; C1894; C8929; C9113; G0257; J0282; J0360; J0610; J0692; J1170; J2250; J2370; J2405; J2430; J2543; J2550; J2710; J3010; J3370; J3411; J3475; J3480; P9016; P9045; P9047; Q9957; Q9967